=== PATIENT | male | born 1990 | race Caucasian/White ===

== ENCOUNTER → 2021-07-26 08:35 | Outpatient (CLI) | payer OTHER, SELFPAY ==
[2021-07-26 10:05] LABS: Absolute Lymphocyte Count 1.27 X10^3/uL (0.83-4.51); Absolute Neutrophil Count 2.8 X10^3/uL (2.0-7.7); Basophil# 0.04 X10^3/uL; Basophil% 0.8 % (0-1); Eosinophil# 0.42 X10^3/uL; Eosinophils% 8.4 % (0-5); Hematocrit 50.2 % (40-54); Hemoglobin 17.2 g/dL (13.0-16.5); Lymphocyte # 1.27 X10^3/ul (0.83-4.51); Lymphocyte % 25.4 % (19-41); Mean Corp Hgb Conc 34.3 g/dL (32-36); Mean Corpuscular Hgb 32.4 pg (27.0-32.0); Mean Corpuscular Volume 94.5 fL (80-94); Mean Platelet Vol. 11.6 fl (6.2-12.0); Monocyte# 0.51 X10^3/uL; Monocyte% 10.2 % (0-10); NRBC Flagged by Analyzer 0 % (0-5); Neutrophil # 2.75 X10^3/uL (2.7-7.7); Platelet Count 198 K/mm3 (150-450); RBC Distribution Width CV 11.9 % (11.6-14.6); Red Blood Count 5.31 M/mm3 (4.6-6.2)
[2021-07-26 10:16] LABS: Erythrocyte Sedimentation Rate 2 mm/hr (0-20)
[2021-07-26 10:39] LABS: Anion Gap 6 (5-15); BUN 19 mg/dL (7-18); BUN/Creat Ratio 17.3 RATIO (10-20); Calcium,Total 9.1 mg/dL (8.5-10.1); Chloride 105 mmol/L (98-107); Cholesterol 192 mg/dL (200); EST Glomerular Filtration Rate 82 mL/min (>60); Est Glom Filt Rate - Afr Amer 99 mL/min (>60); Glucose 97 mg/dL (74-106); High Density Lipoprotein 56 mg/dL; Magnesium 2.7 mg/dL (1.6-2.6); Potassium 4.7 mmol/L (3.5-5.1); Sodium Level 139 mmol/L (136-145); Thyroid Stim Hormone (TSH) 2.08 uIU/mL (0.358-3.74); Triglycerides 91 mg/dL; Very Low Density Lipoprotein 18 mg/dL (5-40)
[2021-07-29 13:31] LABS: ANTINUCLEAR ANTIBODIES DIRECT Negative (Negative)
== END ==
PROVIDERS: PCP Family Medicine; Referring Provider Family Medicine; Visit Provider Family Medicine
DX: Z13.220 Encounter for screening for lipoid disorders (principal); Z13.1 Encounter for screening for diabetes mellitus; I73.00 Raynaud's syndrome without gangrene; R00.2 Palpitations
CPT/HCPCS: 36415; 80048; 80061; 83735; 84443; 85025; 85652; 86038

== ENCOUNTER 2021-09-16 12:00 | Outpatient (RCR) | payer OTHER, SELFPAY ==
--- NOTE | 2021-06-16 15:53 | HP.PTEVAL_ITS ---
Patient's Visit Information MARY SANCHEZ is a 31 year old M referred to Physical Therapy by LUCAS STROUD with a diagnosis of L KNEE ARTHROSCOPIC GENERAL KNEE DEBRIDEMENT 06/03/[address] COTY HOWE. Date of Evaluation: 06/10/21 Physical Therapist: Gaby Ward, PT, Cert MDT - Visit Plan Frequency: 2x /Week Duration: 2 Months Plan: PER PHYSICIAN ORDER: WBAT L WITH BRACE LOCKED IN EXTENSION X 2 WEEKS (PATIENT NON-COMPLIANT). REHAB PER [facility] KNEE ARTHROSCOPY PROTOCOL (IN WORK ROOM). NMES PER PROTOCOL. 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 Present symptoms: PATIENT REPORTS HIS KNEE FEELS REALLY TIGHT. MILD PAIN. NO NUMBNESS OR TINGLING. Present since: 3 WKS AGO. Pain Scale: WORST 6/10, LEAST 1/10. Currently: 09/16. Commenced as a result of: SITTING ON EDGE OF CHAIR WITH FOOT BEHIND HIM AND WHEN HE TRIED TO STRAIGHTENED OUT HIS LEG HE COULDN'T AND HEARD SAND PAPER TYPE TEARING SOUNDS. Symptoms at onset: A LOT OF PAIN, IMMEDIATE SWELLING AND INABILITY TO STRAIGHTEN KNEE. Worse: ABRUPT AGGRESSIVE CONTACT (NEPHEW RAN WAGON INTO LEG), TWISTING. Better: SITTING DOWN, LYING DOWN, ICE. Disturbed sleep: NO. Previous history/Previous treatment: 20 YEARS AGO TORE L MENISCUS PLAYING FOOTBALL AND HAD REPAIR THEN PLAYED SPORTS IN [employer] AND [employer] WITHOUT ISSUES UNTIL 3 WEEKS AGO. Treatment this episode: ARTHROSCOPIC SURGERY 06/03/21. Gait: STATES HE HAS BEEN WALKING ON CRUTCHES WITH EDDA WRAP SINCE THURSDAY OF LAST WEEK TOLERATED. ICING ABOUT 4 TIMES A DAY. NWB WITH BRACE UNTIL THURSDAY. STARTED WBAT WITH CRUTCHES TOLERATED THURSDAY WITHOUT BRACE. Accidents: NO. Unexplained weight loss: NO. Imaging: NONE SINCE SURGERY. PHYSICAL EXAM ONLY - NO IMAGING BEFORE SURGERY EITHER. PMH: UNREMARKABLE OTHER THAN RIGHT SHLD LABRUM REPAIR AND L KNEE MENISCUS REPAIR TEENAGER. PLOF: UNLIMITED. - Objective THIS PATIENT AMBULATES INDEP'LY INTO PT ON ENRRIQUE AXILLARY CRUTCHES VERY LIGHTLY BEARING WEIGHT ON THE LLE, EDDA WRAP ON KNEE AND CARRYING KNEE BRACE. PATIENT IS INDEP WITH TRANSFERS AND ABLE TO GET LLE ON AND OFF TREATMENT TABLW WITHOUT UE ASSIST. RIGHT LE ROM AND STRENGTH ARE WFL. LLE STRENGTH: HIP 4-/5, KNEE EXT 2+/5, KNEE FLEX 2+/5, ANKLE 5/5. LLE AROM IN SUPINE WITH A HEEL SLIDE = -5 DEG EXT TO 75 DEG FLEXION. PORT HOLES LOOK GOOD WITHOUT ANY SIGNS OF INFECTION. CIRCUMFERENCE MEASUREMENTS L KNEE: AT PATELLA - 44 CM. 6 PROX TO PATELLA - 51.5 CM. - Balance/Special Test Scores Lower Extremity Functional Score: 18 WOMAC Total Score: 50 WOMAC Percentatge: 47.9200 - Goals Goal 1:: INDEP AND SAFE GAIT WITH LEAST ASSISTIVE DEVICE AND DEVIATIONS WITHIN GUIDELINES OF PROTOCOL Goal Time Frame: 6-8 Weeks Goal 2:: INCREASE FUNCTIONAL ROM OF LLE TO EASE ADL'S WITHIN GUIDELINES OF PROTOCOL Goal Time Frame: 6-8 Weeks Goal 3:: INCREASE FUNCTIONAL STRENGTH OF LLE TO EASE ADL'S WITHIN GUIDELINES OF PROTOCOL Goal Time Frame: 6-8 Weeks Goal 4:: PATIENT WILL BE INDEP WITH A HEP FOR CONTINUED IMPROVEMENT ONCE FORMAL PHYSICAL THERAPY CONCLUDES. Goal Time Frame: 6-8 Weeks - Anticipated Interventions Patient/Client Instruction: Educate patient on: Condition, Plan of Care, Risk Factors For the Purpose of:: To improve self management Therapeutic Exercise to Include: Strength training, Flexibilty training, Gait and locomotor training, Neuromotor development, Active ROM For the Purpose of:: To decrease pain, To decrease swelling/inflammation, To increase ROM, To improve muscle performance and motor function, To increase tolerance to activity/condition/position, To improve ability of physical actions for home/community/work/leisure, To improve gait and locomotor functions Other electric stimulation: Yes - NMES PER PROTOCOL Cryotherapy (ice pack, ice massage): Yes For the Purpose of:: To decrease pain, To decrease swelling/inflammation Thank you for the opportunity to evaluate your patient. For Medicare and Medicare HMO plans, please review the plan of care and approve it. It will need to be FAXED BACK to us at [phone] for Medicare purposes. For Medicare only, by signing this I certify the plan of care. Please let me know if there are questions or concerns regarding this plan of care. Physician Signature: D ate:
--- NOTE | 2021-09-02 13:00 | HP.PTREVAL ---
LUCAS STROUD, It has been my pleasure to treat MARY SANCHEZ over the last 19 visits for L KNEE ARTHROSCOPIC GENERAL KNEE DEBRIDEMENT 06/03/[address] COTY HOWE. Please see the progress note below for an update on the physical therapy plan of care! Subjective: PATIENT REPORTS HE STILL HAS SOME GHOST ACHES AND PAINS. STATES THE DOCTOR THINKS HIS STRENGHT IS COMING ALONG GOOD BUT THE PAIN ISN'T GOOD. PATIENT REPORTS HE HAS BEEN ON HIS KNEE A LOT THE PAST 5 DAYS AND IT IS REALLY SWOLLEN TODAY. PATIENT REPORTS THE DOCTOR SAID NOT TO RUN ON IT YET. OK TO DO FLUTTER KICKS IN THE WATER BUT NOT BREAST STROKE KICK. PATIENT REPORTS THAT DR. PATEL SAID THAT ONE OF THE STITCHES OR ANCHORS MIGHT HAVE POSSIBLY COME LOOSE AND IS FLOATING AROUND OR SCAR TISSUE - RARE. HARD TO DX THE LADDER SO RECOMMENDED TRYING ANOTHER 3 MONTHS OF PT BEFORE CONSIDERING GOING BACK IN AGAIN. PLANNING TO GO TO THE [facility]. PATIENT REPORTS HE HAS A LOT OF DISCOMFORT IN HIS KNEE RIGHT NOW AND HAS LOST A LOT OF MOBILITY SINCE LAST PT VISIT BECAUSE HE STATES HE HAS BEEN ON IT WAY TOO MUCH. 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 Objective/Function: PATIENT WAS SEEN TODAY FOR RE-ASSESSMENT OF PROGRESS TOWARD THE SET PT GOALS AND THE NEED FOR FURTHER PHYSICAL THERAPY VS READINESS FOR DISCHARGE. PATIENT IS A GOOD CANDIDATE TO CONTINUE PT DUE TO RECENT SET BACK WITH INCREASED SWELLING AND DECREASED ROM IN RESPONSE TO TRYING TO RETURN TO PRIOR LEVEL OF FUNCTION. HIS SWELLIING TODAY IS ALMOST BACK TO WHAT IT WAS AT HIS INITAL PT EVAL AFTER SURGERY AND HIS KNEE FLEXION ROM HAS DECREASED BACK TO 120 DEG FLEXION TODAY. UPON EXAM TODAY: L KNEE AROM IN SUPINE WITH A HEEL SLIDE = FULL EXTENSION TO 120 DEG FLEXION WITH [id number]. CIRCUMFERENCE MEASUREMENTS L KNEE: AT PATELLA - 43.5 CM. 6 PROX TO PATELLA - 51.5 CM. GOOD SCAR MOBILITY AND GOOD PATELLAR MOBILITY. ISOMETRIC QUAD AND HS STRENGTH IS GOOD. PATIENT REPORTS THAT HE KNOWS HIS INCRASED KNEE PAIN, SWELLING AND STIFFNESS IS DUE TO HIS ACTIVITIES OUTSIDE OF PT. THIS PT RECOMMENDS AQUATIC THERAPY AT THIS TIME DUE TO THESE INCREASED SX'S. PATIENT IS AGREEABLE. ENCOURAGED PATIENT TO DECREASE ACTIVITIES OUTSIDE OF PT THAT PROVOKE PAIN AND/OR SWELLING AND PATIENT RESPONDS THAT THIS IS VERY DIFFICULT FOR HIM. Plan Plan: CHANGE FROM LAND TO AQUATIC THERAPY FOR LEFT KNEE PAIN REDUCTION, ROM, STRETCHING AND STRENGTHENING TOLERATED TO HELP MEET SET GOALS. Balance/Gait/Functional tests - Balance/Special Test Scores Lower Extremity Functional Score: 60 WOMAC Total Score: 6 WOMAC Percentage: 93.7500 Goals Goal 1:: INDEP AND SAFE GAIT WITH LEAST ASSISTIVE DEVICE AND DEVIATIONS WITHIN GUIDELINES OF PROTOCOL Goal Time Frame: 6-8 Weeks Goal Progress: Goal Met Goal 2:: INCREASE FUNCTIONAL ROM OF LLE TO EASE ADL'S WITHIN GUIDELINES OF PROTOCOL Goal Time Frame: 6-8 Weeks Goal Progress: Not Progressing Goal 3:: INCREASE FUNCTIONAL STRENGTH OF LLE TO EASE ADL'S WITHIN GUIDELINES OF PROTOCOL Goal Time Frame: 6-8 Weeks Goal Progress: Not Progressing Goal 4:: PATIENT WILL BE INDEP WITH A HEP FOR CONTINUED IMPROVEMENT ONCE FORMAL PHYSICAL THERAPY CONCLUDES. Goal Time Frame: 6-8 Weeks Goal Progress: Progressing Anticipated Interventions Patient/Client Instruction: Educate patient on: Condition, Plan of Care, Risk Factors For the Purpose of:: To improve self management Therapeutic Exercise to Include: Strength training, Flexibilty training, Gait and locomotor training, Neuromotor development, Active ROM For the Purpose of:: To decrease pain, To decrease swelling/inflammation, To increase ROM, To improve muscle performance and motor function, To increase tolerance to activity/condition/position, To improve ability of physical actions for home/community/work/leisure, To improve gait and locomotor functions Other electric stimulation: Yes - NMES PER PROTOCOL Cryotherapy (ice pack, ice massage): Yes For the Purpose of:: To decrease pain, To decrease swelling/inflammation Please do not hesitate to contact me at [phone] by phone or if you have questions or concerns regarding this new plan of care! Sincerely, Gaby Ward, PT, Cert MDT
== END 2021-09-16 19:00 | disposition home or self-care (01) ==
LOC: PT 12:00
DX: Z98.890 Other specified postprocedural states (principal)
CPT/HCPCS: 97014; 97110; 97113; 97161; 97164; 97530; G0283

== ENCOUNTER 2022-11-15 21:59 | Emergency (ER) | payer OTHER, SELFPAY ==
[2022-11-15 22:00] VITALS: BP 119/82; PULSE 81; RESP 16; TEMP 35.9; O2SAT 98; BMI 27.7
--- NOTE | 2022-11-15 22:40 | EX.ED.DYSGE1 ---
HPI History of Present Illness Chief Complaint: Chest Pain Narrative Narrative: Patient is a 32-year-old male with no significant past medical history. He states he was on a cruise for the past 5 days and flew home from [facility] today. He states that he was sitting on the plane and once they closed the cabin door and began to due to pressurized the plane he developed a midsternal chest discomfort with numbness and tingling in his arms and legs. He states that the initial sensation lasted for a few minutes and since that time he will have repeat chest discomfort that last for 5 to 10 seconds every few minutes. He states there is no nausea vomiting diaphoresis or shortness of breath associated with this. He denies any family history of cardiac disease at a young age. He denies any illicit drug use. He denies any recent surgery travel greater than 4 hours or history of DVT/PE. He states that he is concerned that this could be cardiac in nature and secondary to this comes in for evaluation. [facility] Medical History Heart murmur of Allergy/AdvReac Type Severity Reaction Status Date / Time No Known Allergies Allergy Verified 11/15/22 22:04 Social History Smoking Status: Former smoker [facility] ED Constitutional Constitutional ED: Denies chills or fever(s) ENT ENT ED: Denies sore throat Cardiovascular Cardiovascular: Reports chest pain; Denies palpitations or racing heartbeat Respiratory/Chest Respiratory/Chest: Denies cough or dyspnea Gastrointestinal Gastrointestinal: Denies abdominal pain, diarrhea, nausea or vomiting Genitourinary Genitourinary ED: Denies dysuria Musculoskeletal Musculoskeletal: Denies myalgias Integumentary Denies rash Neurologic Neurologic: Reports paresthesias; Denies headache(s) or weakness Psychiatric Psychiatric: Denies anxiety Hematologic/Lymphatic Hematologic/Lymphatic: Denies easy bleeding or easy bruising EXAM Physical Exam Const Vital Signs: 11/15/22 22:00 11/15/22 22:00 11/15/22 22:33 Temperature 96.6 F L 96.6 F L Temperature Source Temporal Temporal Pulse Rate 81 81 Respiratory Rate 16 16 Respiratory Effort Normal Blood Pressure 119/82 H 119/82 H Blood Pressure Mean 94 94 Pulse Ox 98 98 Oxygen Delivery Method Room Air Room Air 11/15/22 23:13 Temperature Temperature Source Pulse Rate 73 Respiratory Rate 16 Respiratory Effort Blood Pressure 99/66 Blood Pressure Mean 77 Pulse Ox 100 Oxygen Delivery Method Room Air Positive well nourished and well developed General Appearance ED: well developed HEENT Reports moist mucous membranes Eyes PERRL and EOMs intact bilaterally General Eye ED: Negative for scleral icterus Neck supple Neck Narrative: Carotid pulses are plus 2 out of 4 bilaterally Chest Wall palpation of chest normal Chest Narrative: No bony deformity or crepitus noted Resp normal respiratory effort and clear to auscultation bilaterally Cardio regular rate and regular rhythm Rate: other Other Details: Radial pulses are plus 2 out of 4 bilaterally are equal and symmetric GI normal to inspection, nondistended, normoactive bowel sounds, non-tender, non-distended and no masses GI Narrative: No voluntary guarding or rigidity no pulsatile mass Auscultation: normoactive bowel sounds Palpation: soft Extremity normal to inspection Extremity Narrative: No asymmetric edema no pitting edema negative Homans' sign bilaterally Neuro oriented x3 and CN's II-XII intact bilaterally Sensorium / Orientation: alert Psych mental status grossly normal Skin no rashes or lesions noted General Skin Exam: Negative for jaundice MDM MDM MDM Narrative Medical decision making narrative: Patient presented to the ER with stable vitals and low risk factors for cardiovascular disease. Also his report of symptoms are not classic cardiac in nature. As his travel today was only 2 hours I did not feel need for a D-dimer. As he reports symptoms have been persistent for multiple hours as well I do not feel the need for repeat troponin as his initial is 3. On reevaluation the patient is resting comfortably and states that symptoms have improved and therefore as he is low risk for acute ACS and work-up reveals no clinically significant findings he is otherwise safe for discharge. Differential did include pneumothorax pneumonia acute ACS anxiety or electrolyte disturbance. As work-up is negative and symptoms improved there was no need for consultation. The plan of care was discussed with the patient and he is agreeable to it and therefore will be discharged. Please note aspirin was not given in the ER as patient states he took a full-strength aspirin prior to arrival. History & Record Review Discussion w/independent historian: Patient Lab Data Attestation: I reviewed the patient's lab results. Labs: Laboratory Results - last 24 hr 11/15/22 11/15/22 22:40 22:40 WBC 6.8 RBC 4.70 Hgb 15.4 Hct 44.1 MCV 93.8 MCH 32.8 H MCHC 34.9 RDW Std Deviation 41.1 RDW Coeff of Erin 11.9 Plt Count 197 MPV 10.6 Immature Gran % (Auto) 0.300 Neut % (Auto) 72.7 H Lymph % (Auto) 18.2 L [place] % (Auto) 7.2 Eos % (Auto) 1.2 Baso % (Auto) 0.4 Absolute Neuts (auto) 5.0 Absolute Lymphs (auto) 1.24 Nucleated RBC % 0 Sodium 141 Potassium 3.7 Chloride 103 Carbon Dioxide 30.0 Anion Gap 8 BUN 16 Creatinine 1.16 Estim Creat Clear Calc 98.49 Est GFR (MDRD) Af Amer 92 Est GFR (MDRD) Non-Af 76 BUN/Creatinine Ratio 13.8 Glucose 113 H Calcium 9.1 Magnesium 2.1 Troponin I High Sens 3 Radiography Diagnostic Testing: Clinical Impression(s) from Imaging Studies Chest X-Ray 11/15/22 22:53 IMPRESSION: No acute disease Electronically Signed: Keith Blanca MD at 23:05 EST Reading Location ID and State: [address] [place] [address] , Service support , 2 view chest x-ray as interpreted by the emergency medicine physician reveals no acute infiltrate pneumothorax or pleural effusion Discharge Plan Triage Chief Complaint: Chest Pain ED Provider: Quinn Urban Dx/Rx/DC Orders Clinical Impression: Acute nonspecific chest pain with low risk of coronary artery disease Instructions: ED Chest Pain, Uncertain Cause Primary Care Provider: Karan Villarreal Referrals: Karan Villarreal MD [Primary Care Provider] - Activity Restrictions/Additional Instructions: Your work-up today did not show any of heart damage or heart attack. Please follow-up with your family doctor for repeat evaluation and return to the ER should you have any further concerns Disposition Disposition: Home, Self Care
[2022-11-15] MEDS: 0.9% Normal Saline 1,000 ML 999 ML IV (22:43)
--- NOTE | 2022-11-15 22:53 | RAD_ITS ---
STUDY: X-RAY CHEST REASON FOR EXAM: Male, 32 years old. chest pain TECHNIQUE: Frontal and lateral views of the chest. COMPARISON: None. FINDINGS: The lungs are clear and expanded. There is no demonstrated pleural abnormality. Normal size heart. Normal mediastinum and floyd. Normal visualized pulmonary arteries. Normal visualized aortic arch and descending thoracic aorta. Mild scoliosis. Normal visualized ribs, clavicles, and shoulders. There is no demonstrated abnormality of the visualized soft tissue structures of the upper abdomen. RAD/Chest PA and Lateral IMPRESSION: No acute disease Electronically Signed: Keith Blanca MD at 23:05 EST ,
[2022-11-15 23:01] LABS: Absolute Lymphocyte Count 1.24 X10^3/uL (0.83-4.51); Basophil# 0.03 X10^3/uL; Basophil% 0.4 % (0-1); Eosinophil# 0.08 X10^3/uL; Eosinophils% 1.2 % (0-5); Hematocrit 44.1 % (40-54); Hemoglobin 15.4 g/dL (13.0-16.5); Lymphocyte # 1.24 X10^3/ul (0.83-4.51); Lymphocyte % 18.2 % (19-41); Mean Corp Hgb Conc 34.9 g/dL (32-36); Mean Corpuscular Hgb 32.8 pg (27.0-32.0); Mean Corpuscular Volume 93.8 fL (80-94); Mean Platelet Vol. 10.6 fl (6.2-12.0); Monocyte# 0.49 X10^3/uL; Monocyte% 7.2 % (0-10); NRBC Flagged by Analyzer 0 % (0-5); Neutrophil # 4.96 X10^3/uL (2.7-7.7); Neutrophil % 72.7 % (47-70); Platelet Count 197 K/mm3 (150-450); RBC Distribution Width CV 11.9 % (11.6-14.6); RBC Distribution Width SD 41.1 fl (35.1-43.9); White Blood Count 6.8 K/mm3 (4.4-11.0)
[2022-11-15 23:13] VITALS: BP 99/66; PULSE 73; RESP 16; O2SAT 100
[2022-11-15 23:26] LABS: Anion Gap 8 (5-15); BUN 16 mg/dL (7-18); BUN/Creat Ratio 13.8 RATIO (10-20); Calcium,Total 9.1 mg/dL (8.5-10.1); Chloride 103 mmol/L (98-107); Creatinine, Serum 1.16 mg/dL (0.70-1.30); EST Glomerular Filtration Rate 76 mL/min (>60); Est Glom Filt Rate - Afr Amer 92 mL/min (>60); Estimated Creatinine Clearance 98.49 ml/min; Glucose 113 mg/dL (74-106); Magnesium 2.1 mg/dL (1.6-2.6); Potassium 3.7 mmol/L (3.5-5.1); Sodium Level 141 mmol/L (136-145); Troponin-I HS 3 pg/mL (3.0-78.0)
== END 2022-11-15 23:42 | disposition home or self-care (01) ==
PROVIDERS: Emergency Provider Emergency Medicine; PCP Family Medicine; Visit Provider Emergency Medicine
DX: R07.9 Chest pain, unspecified (principal); Z87.891 Personal history of nicotine dependence
CPT/HCPCS: 71046; 80048; 83735; 84484; 85025; 93005; 96360; 99282; J7030; A4216

== ENCOUNTER 2022-12-02 09:14 | Inpatient (IN) | payer OTHER, SELFPAY ==
[2022-12-02] VITALS (7 sets, daily range): BP systolic 91–109; BP diastolic 45–68; PULSE 57–75; RESP 14–18; TEMP 36.4–36.9; O2SAT 97–100; BMI 27.1
--- NOTE | 2022-12-02 09:40 | CT_ITS ---
STUDY: CT ABDOMEN AND PELVIS WITH CONTRAST REASON FOR EXAM: Male, 32 years old. RLQ pain RADIATION DOSAGE (If Supplied By Facility): CTDIvol = ( 16.14 ) mGy, DLP = ( 970.41 ) mGycm TECHNIQUE: Transaxial images were obtained from the dome of the diaphragm to the symphysis pubis without oral contrast. IV 100mL Isovue-370 was administered. Sagittal and coronal images were reconstructed. Individualized dose optimization techniques were used for this CT. COMPARISON: None. FINDINGS: Minimal basilar atelectasis at the left lung base. Mild pericardial thickening along the anterior right side of the inferior aspect of the cardiac border. Normal liver. Normal gallbladder and extrahepatic biliary system. Normal spleen. Normal pancreas. Normal bilateral adrenal glands. Normal right kidney. Normal left kidney. There is a small hiatal hernia. There is mucosal thickening of the terminal ileum. Normal colon. There is a tubular, thick-walled appendix (>7mm), consistent with acute appendicitis. Normal abdominal aorta. Normal inferior vena cava. Normal retroperitoneum. Normal urinary bladder. There are prostatic calcifications. There is a small umbilical hernia containing fat. Normal osseous structures. CT/Abdomen/Pelvis W IV Cont ONLY IMPRESSION: Findings in keeping with a noncomplicated appendicitis. Circumferential thickening of the terminal ileum. Crohn''s disease should be ruled out. Electronically Signed: Gui Capellan MD at 11:04 EDT ,
--- NOTE | 2022-12-02 09:40 | EDS_ITS ---
HPI HPI - GI History of Present Illness Chief Complaint: Abd Pain Narrative Narrative: 32-year-old male who denies significant past medical history presents with right lower quadrant abdominal pain that began at around 430 this morning, approximately 5 hours ago. He states it woke him from sleep. It started out as periumbilical pain, but has since moved to the right lower quadrant. He denies any fevers or chills. He was going to go see his primary care provider but he became nauseated and vomited without any blood in his emesis. He denies any dysuria or hematuria. No problems with bowel movements. Earlier today, he thought that lying flat perhaps made it better. He states that whenever he tenses his abdomen or moves that he has pain mainly in the right lower quadrant. No previous past surgical history to the abdomen. [facility] Medical History (Updated 12/02/22 @ 12:03 by Bassem Richardson MD) Anxiety Heart murmur of Home Medications desvenlafaxine succinate 50 mg tablet,extended release 24 hr 50 mg PO DAILY 12/02/22 [History Last Taken Unknown] Allergy/AdvReac Type Severity Reaction Status Date / Time No Known Allergies Allergy Verified 12/02/22 09:17 Social History Smoking Status: Former smoker ROS ROS ED ROS Narrative Constitutional: No fever, no chills. HEENT: No sore throat. No neck pain. No loss of vision. No rhinorrhea. Cardiovascular: No chest pain. No palpitations. No pedal edema. Respiratory: No cough, no shortness of breath. Abdominal: Periumbilical to right lower quadrant abdominal pain. Positive nausea and vomiting. Genitourinary: No dysuria. No hematuria. Musculoskeletal: No myalgias. No arthralgias. Neurologic: No headaches. No dizziness. No lightheadedness. Skin: No rash. No change in color. Psychiatric: No depression. No anxiety. EXAM Physical Exam Narrative Exam Narrative: Afebrile. Vital signs noted. HEENT: Normocephalic. Atraumatic. PERRL, EOMI. Neck soft and supple. No point tenderness or step off. Cardiovascular: Regular rate and rhythm. No murmurs, rubs, or gallops appreciated. Respiratory: No tachypnea. Lungs clear to auscultation bilaterally. Gastrointestinal: Abdomen soft, negative Maradiaga sign. Positive tenderness over McBurney's point. With normoactive bowel sounds. No rebound or guarding. Negative heel strike. Neurological: Awake. Alert. Nonfocal, nonlateralizing. Skin: No rash. Normal color. No pallor. Musculoskeletal: No pedal edema. Full range of motion extremities. Const Vital Signs: 12/02/22 09:15 12/02/22 11:04 12/02/22 11:11 Temperature 97.9 F 98 F Temperature Source Temporal Temporal Pulse Rate 66 59 L 75 Respiratory Rate 18 16 14 Blood Pressure 104/66 91/45 L 100/58 L Blood Pressure Mean 78 60 72 Blood Pressure Source Monitor Blood Pressure Position Supine Blood Pressure Location Right Arm Pulse Ox 100 100 99 Oxygen Delivery Method Room Air Room Air Room Air 12/02/22 11:59 Temperature Temperature Source Pulse Rate 74 Respiratory Rate 16 Blood Pressure 103/63 Blood Pressure Mean 76 Blood Pressure Source Blood Pressure Position Blood Pressure Location Pulse Ox 99 Oxygen Delivery Method Room Air MDM MDM MDM Narrative Medical decision making narrative: High on the differential diagnosis is appendicitis. Given his history of periumbilical pain migrating to the right lower quadrant, along with nausea and vomiting. I will obtain CBC, CMP, and lipase in the event that this would be more gallbladder pathology or cholecystitis, but this is less likely given his physical examination and no pain over the right upper quadrant/Maradiaga sign. He was administered morphine for analgesia and ondansetron along with a normal saline bolus of [address] I do feel [address] imaging with IV contrast is indicated to help rule in or rule out appendicitis. I reviewed the patient's laboratory work. He has a normal white count of 8.4, hemoglobin slightly hemoconcentrated at 16.7, hematocrit 48.7. Normal platelet count of 178. Review of his CMP shows glucose appropriately elevated at 122 with a normal anion gap/low at 2. Sodium normal at 139 with potassium normal at 4.5. LFTs are unremarkable with an AST of 19 and an ALT of 31, alk phos normal at 67. In review of his urinalysis, it is negative for infection. Upon repeat examination, after morphine, he is resting comfortably but he had a transient bout of hypotension. He will be bolused normal saline 1 L intravenously. I reviewed his CT imaging, then the radiology report of the CT which demonstrates uncomplicated appendicitis without perforation or abscess development. Patient will be discussed with Dr. Mcguire with General Surgery for admission/taken to the OR. In discussion with general surgery, and with further review of the CT report, there is thickening of the terminal ileum. There is concern that appendectomy cannot be performed given the friable tissue and thickening if the patient does have Crohn disease. Antibiotics will be started. I further discussed the patient with Dr. Mcguire. She has spoken extensively with the patient and his family, and additionally, she was able to contact gastroenterology although no one is on-call here today. It was felt that they will follow as an inpatient but the patient should be admitted to the hospitalist at this time. I will discuss the patient with Dr. Black for admission. Patient is in stable condition. History & Record Review Discussion w/independent historian: Patient Additional record(s) reviewed:: Prior ED visit Lab Data Attestation: I reviewed the patient's lab results. Labs: Laboratory Results - last 24 hr 12/02/22 12/02/22 12/02/22 09:46 09:46 10:25 WBC 8.4 RBC 5.01 Hgb 16.7 H Hct 48.7 MCV 97.2 H MCH 33.3 H MCHC 34.3 RDW Std Deviation 43.8 RDW Coeff of Erin 12.3 Plt Count 178 MPV 10.9 Immature Gran % (Auto) 0.200 Neut % (Auto) 89.5 H Lymph % (Auto) 6.0 L [place] % (Auto) 3.9 Eos % (Auto) 0.2 Baso % (Auto) 0.2 Absolute Neuts (auto) 7.5 Absolute Lymphs (auto) 0.50 L Nucleated RBC % 0 Differential Comment SCANNED Sodium 139 Potassium 4.5 Chloride 107 Carbon Dioxide 30.0 Anion Gap 2 L BUN 15 Creatinine 1.15 Estim Creat Clear Calc 99.34 Est GFR (MDRD) Af Amer 93 Est GFR (MDRD) Non-Af 77 BUN/Creatinine Ratio 13.0 Glucose 122 H Calcium 9.0 Total Bilirubin 0.60 AST 19 ALT 31 Alkaline Phosphatase 67 Total Protein 7.3 Albumin 4.0 Globulin 3.3 Albumin/Globulin Ratio 1.2 Lipase 93 Urine Color Yellow Urine Clarity Clear Urine pH 8.0 Ur Specific [place] 1.010 Urine Protein 30 H Urine Glucose (UA) Normal Urine Ketones 5 H Urine Occult Blood Negative Urine Nitrite Negative Urine Bilirubin Negative Urine Urobilinogen Normal Ur Leukocyte Esterase 25 H Urine RBC 0 SEEN Urine WBC 0 SEEN Ur Squamous Epith Cells 0 SEEN Urine Bacteria 0 SEEN Urine Mucus 1+ Radiography Diagnostic Testing: Clinical Impression(s) from Imaging Studies Abdomen/Pelvis CT 12/02/22 09:40 IMPRESSION: Findings in keeping with a noncomplicated appendicitis. Circumferential thickening of the terminal ileum. Crohn''s disease should be ruled out. Electronically Signed: Gui Capellan MD at 11:04 EDT , Discharge Plan Dx/Rx/DC Orders Clinical Impression: Acute appendicitis, Anxiety, Abdominal pain, Abnormal computed tomography of cecum and terminal ileum Disposition Disposition: Acute Care Hospital [facility]
[2022-12-02 09:58] LABS: Absolute Neutrophil Count 7.5 X10^3/uL (2.0-7.7); Basophil# 0.02 X10^3/uL; Basophil% 0.2 % (0-1); Eosinophil# 0.02 X10^3/uL; Eosinophils% 0.2 % (0-5); Hematocrit 48.7 % (40-54); Hemoglobin 16.7 g/dL (13.0-16.5); Mean Corp Hgb Conc 34.3 g/dL (32-36); Mean Corpuscular Hgb 33.3 pg (27.0-32.0); Mean Corpuscular Volume 97.2 fL (80-94); Mean Platelet Vol. 10.9 fl (6.2-12.0); Monocyte# 0.33 X10^3/uL; Monocyte% 3.9 % (0-10); NRBC Flagged by Analyzer 0 % (0-5); Neutrophil # 7.49 X10^3/uL (2.7-7.7); Neutrophil % 89.5 % (47-70); POSITIVE DIFFERENTIAL YES; Platelet Count 178 K/mm3 (150-450); RBC Distribution Width CV 12.3 % (11.6-14.6); RBC Distribution Width SD 43.8 fl (35.1-43.9); Red Blood Count 5.01 M/mm3 (4.6-6.2); White Blood Count 8.4 K/mm3 (4.4-11.0)
[2022-12-02] MEDS: Ondansetron 4 MG/2 ML Vial IV (10:01)
[2022-12-02] MEDS: Morphine 4 MG/ML Syringe IV (10:01)
[2022-12-02] MEDS: 0.9% Normal Saline 1,000 ML 1000 ML IV (10:01)
[2022-12-02 10:03] LABS: Differential Indicated SCAN CRITERIA MET
[2022-12-02 10:17] LABS: ALB/GLOB Ratio 1.2 RATIO (0.9-2.4); AST(SGOT) 19 U/L (15-37); Alanine Aminotransfer ALT/SGPT 31 U/L (16-61); Alkaline Phosphatase 67 U/L (45-117); Anion Gap 2 (5-15); BUN 15 mg/dL (7-18); Chloride 107 mmol/L (98-107); Creatinine, Serum 1.15 mg/dL (0.70-1.30); EST Glomerular Filtration Rate 77 mL/min (>60); Est Glom Filt Rate - Afr Amer 93 mL/min (>60); Estimated Creatinine Clearance 99.34 ml/min; Globulin 3.3 g/dL (2.2-4.2); Glucose 122 mg/dL (74-106); Lipase 93 U/L (73-393); Potassium 4.5 mmol/L (3.5-5.1); Protein, Total 7.3 g/dL (6.4-8.2); Sodium Level 139 mmol/L (136-145)
[2022-12-02 10:31] LABS: Bacteria 0 SEEN /hpf (None Seen); Red Blood Cells-Urine 0 SEEN /hpf (0-5); Squamous Epithelial Cells - UA 0 SEEN /hpf (0-5); White Blood Cells 0 SEEN /hpf (0-5)
[2022-12-02 10:32] LABS: Differential Comment SCANNED
[2022-12-02 10:37] LABS: Color, Urine Yellow (Yellow); Glucose, Dipstick Normal (Normal); Ketone-Dipstick 5 mg/dl (Negative); Leukocyte Esterase-Dipstick 25 /ul (Negative); Nitrite-Dipstick Negative (Negative); Occult Blood-Urine Negative /ul (Negative); Protein-Dipstick 30 mg/dl (Negative); Urine Bilirubin Dipstick Negative (Negative); Urine Clarity Clear (Clear); Urine Urobilinogen Normal (Normal)
[2022-12-02 10:51] LABS: Mucous, Urine 1+ /hpf (<or=2+)
[2022-12-02] MEDS: 0.9% Normal Saline 1,000 ML 999 ML IV (11:25)
--- NOTE | 2022-12-02 12:25 | HP.PCM.HOS_ITS ---
HPI - General General Date of Admission: 12/02/22 Date of Service: 12/02/22 Chief Complaint: Abdominal pain HPI Narrative MARY SANCHEZ, is a 32 M with a history of anxiety who presented to [facility] 12/02/2022 with abdominal pain that woke him up at 4 AM. In the ED he had a CT of his abdomen and pelvis which showed noncomplicated appendicitis as well as circumferential thickening of terminal ileum concerning for Crohn's disease, surgery contacted and given the concern for possible Crohn's disease as well as him being stable acute surgical intervention not warranted and hospitalist admission requested. Patient endorses waking up at 4 AM and afterwards he was unable to get comfortable, had a small bowel movement but no relief. [place] the pain was periumbilical and sharp in nature. He has never had anything like this before. Reports some chronic intermittent diarrhea that has not necessarily changed, no blood in stool, has had nausea and emesis. Denied any other complaints at this time [facility] Medical History Anxiety Heart murmur of Home Medications GENIUS MUSHROOMS 1 tab PO/SL DAILY SUPPLEMENT 12/02/22 [History Last Taken 11/30/22] Thc Gummies 15 - 150 mg PO/SL DAILY PRN Anxiety 12/02/22 [History Last Taken 12/01/22] desvenlafaxine succinate 50 mg tablet,extended release 24 hr 50 mg PO DAILY FOCUS 12/02/22 [History Last Taken 11/30/22] jgxokkpb-fqwuhtls-dmkhc acid 400 mcg-vit K 20 mcg-lycop 300 mcg tablet 1 tab PO DAILY SUPPLEMENT 12/02/22 [History Last Taken 12/02/22] Allergy/AdvReac Type Severity Reaction Status Date / Time No Known Allergies Allergy Verified 12/02/22 09:17 Social History Smoking Status: Former smoker ROS ROS Narrative General: Denies fever/chills HENT: Denies headache, denies stuffy nose, denies sore throat EYES: Denies changes in vision Resp: Denies cough, denies shortness of breath Cardiac: Denies chest pain GI: periumbilical abd pain worse w/ movement : Denies changes in urination Extremity: Denies swelling MSK: Denies weakness Neuro: Denies any numbness/tingling Heme: Denies any bleeding or bruising Skin: Denies rashes Psychiatric: No complaints voiced Vital Signs Vital Signs Vital Signs: 12/02/22 09:15 12/02/22 11:04 12/02/22 11:11 Temperature 97.9 F 98 F Temperature Source Temporal Temporal Pulse Rate 66 59 L 75 Respiratory Rate 18 16 14 Blood Pressure 104/66 91/45 L 100/58 L Blood Pressure Mean 78 60 72 Blood Pressure Source Monitor Blood Pressure Position Supine Blood Pressure Location Right Arm Pulse Ox 100 100 99 Oxygen Delivery Method Room Air Room Air Room Air 12/02/22 11:59 Temperature Temperature Source Pulse Rate 74 Respiratory Rate 16 Blood Pressure 103/63 Blood Pressure Mean 76 Blood Pressure Source Blood Pressure Position Blood Pressure Location Pulse Ox 99 Oxygen Delivery Method Room Air Weight Weight: 90.718 kg Body Mass Index (BMI) 27.1 Physical Exam Narrative General: Alert, oriented, no apparent distress HEENT: Atraumatic, normocephalic Eyes: Anicteric, normal conjunctiva, extraocular movements grossly intact Neck: Supple Respiratory: Clear to auscultation bilaterally, normal respiratory effort Cardiovascular: Regular rate and rhythm GI: soft, non distended, tender to palpation primarily periumbilically, no r/g/r Extremities: No edema Musculoskeletal: Moving all extremities Neuro: No overt focal neurological deficits Skin: No rashes appreciated Psych: Cooperative Results Lab / Micro Data Result Diagrams: 12/02/22 09:46 12/02/22 09:46 Labs: Laboratory Results - last 24 hr 12/02/22 09:46: WBC 8.4, RBC 5.01, Hgb 16.7 H, Hct 48.7, MCV 97.2 H, MCH 33.3 H, MCHC 34.3, RDW Std Deviation 43.8, RDW Coeff of Erin 12.3, Plt Count 178, MPV 10.9, Immature Gran % (Auto) 0.200, Neut % (Auto) 89.5 H, Lymph % (Auto) 6.0 L, [place] % (Auto) 3.9, Eos % (Auto) 0.2, Baso % (Auto) 0.2, Absolute Neuts (auto) 7.5, Absolute Lymphs (auto) 0.50 L, Nucleated RBC % 0, Differential Comment SCANNED 12/02/22 09:46: Sodium 139, Potassium 4.5, Chloride 107, Carbon Dioxide 30.0, Anion Gap 2 L, BUN 15, Creatinine 1.15, Estim Creat Clear Calc 99.34, Est GFR (MDRD) Af Amer 93, Est GFR (MDRD) Non-Af 77, BUN/Creatinine Ratio 13.0, Glucose 122 H, Calcium 9.0, Total Bilirubin 0.60, AST 19, ALT 31, Alkaline Phosphatase 67, Total Protein 7.3, Albumin 4.0, Globulin 3.3, Albumin/Globulin Ratio 1.2, Lipase 93 12/02/22 10:25: Urine Color Yellow, Urine Clarity Clear, Urine pH 8.0, Ur Specific [place] 1.010, Urine Protein 30 H, Urine Glucose (UA) Normal, Urine Ketones 5 H, Urine Occult Blood Negative, Urine Nitrite Negative, Urine Bili bland Negative, Urine Urobilinogen Normal, Ur Leukocyte Esterase 25 H, Urine RBC 0 SEEN, Urine WBC 0 SEEN, Ur Squamous Epith Cells 0 SEEN, Urine Bacteria 0 SEEN, Urine Mucus 1+ Radiology Impression Abdomen/Pelvis CT 12/02/22 09:40 IMPRESSION: Findings in keeping with a noncomplicated appendicitis. Circumferential thickening of the terminal ileum. Crohn''s disease should be ruled out. Electronically Signed: Gui Capellan MD at 11:04 EDT , Assessment & Plan Assessment/Plan (1) Acute appendicitis: (2) Abnormal computed tomography of cecum and terminal ileum: PLAN: Plan #acute appendicits -seen on CT scan -d/w surgery, will keep on zosyn and CLD -terminal ileum inflammation seen w/ question for crohn's dz, GI consulted. -pain control, zofran prn #anxiety -cont effexor -supportive care DVT ppx: SCDs Charges/Coding Visit Charges Inpatient E&M: 19969 Init Hosp L2
--- NOTE | 2022-12-02 12:50 | EX.PCM.CON.S ---
Assessment & Plan Assessment/Plan (1) Abnormal computed tomography of cecum and terminal ileum: (2) Acute appendicitis: PLAN: Plan Reviewed to imaging personally and with patient and his dad. Patient's appendix is dilated likely secondary to the inflammation of the terminal ileum. Would not recommend surgery as discussed with patient and his dad it would require removal of much more terminal ileum and part of the cecum in order to heal if that would heal depending on inflammation present. We will plan to treat with antibiotics patient was started on IV Zosyn in the ER. No plans for surgical intervention. Patient will be admitted to hospitalist and have GI see patient for recommendations. Cayla Mcguire M.D. Pager: [phone] [facility] [address] [place] [address], [facility] [address] [place] [address] Office: [phone] HPI Consult Data Date of Consult: 12/02/22 HPI Narrative HPI Narrative: MARY SANCHEZ, is a 32 M who presents to ER for periumbilical pain starting at 4:30 am this AM. Pt denies previous abd pain hx or episodes. Pt does admit to diarrhea about every 3 days for years, pt denies inciting foods etc. CT a/p shows thickening of terminal ileum and appendicitis. Pt maternal uncle had crohns, dad has RA and his siblings have DM and sister with sjogrens. WBC wnl with left shift. Pt does drink 8-10 beers on thursday and thursday, previous was 20+ on those days. [facility] Medical History Anxiety Heart murmur of Home Medications GENIUS MUSHROOMS 1 tab PO/SL DAILY SUPPLEMENT 12/02/22 [History Last Taken 11/30/22] Thc Gummies 15 - 150 mg PO/SL DAILY PRN Anxiety 12/02/22 [History Last Taken 12/01/22] desvenlafaxine succinate 50 mg tablet,extended release 24 hr 50 mg PO DAILY FOCUS 12/02/22 [History Last Taken 11/30/22] yrudzdlw-atlhacmx-uqqli acid 400 mcg-vit K 20 mcg-lycop 300 mcg tablet 1 tab PO DAILY SUPPLEMENT 12/02/22 [History Last Taken 12/02/22] Allergy/AdvReac Type Severity Reaction Status Date / Time No Known Allergies Allergy Verified 12/02/22 09:17 Social History Smoking Status: Former smoker ROS Constitutional Constitutional: Reports anorexia; Denies chills ENT HEENT: Denies dizziness Cardiovascular Cardiovascular: Denies chest pain Respiratory/Chest Respiratory/Chest: Denies shortness of breath at rest Gastrointestinal Gastrointestinal: Reports abdominal pain, diarrhea and nausea; Denies constipation, heartburn, hematemesis or melena Genitourinary Genitourinary: Denies burning urination Musculoskeletal Musculoskeletal: Denies joint pain Integumentary Integumentary: Denies rash Neurologic Neurologic: Denies focal weakness Psychiatric Psychiatric: Denies depression Endocrine Endocrinology: Denies palpitations Hematologic/Lymphatic Hematologic/Lymphatic: Denies anemia or easy bleeding Physical Exam Const alert, oriented x3 and no apparent distress HEENT normocephalic and head/scalp atraumatic Resp normal respiratory effort Cardio regular rate GI soft to palpation; Negative for non-distended Palpation: tender periumbilical (slightly towards right); Negative for guarding Extremity no clubbing, cyanosis or edema Neuro CN's II-XII intact bilaterally Psych mental status grossly normal Lab / Micro Data Result Diagrams: 12/02/22 09:46 12/02/22 09:46 Labs: Laboratory Results - last 24 hr 12/02/22 09:46: WBC 8.4, RBC 5.01, Hgb 16.7 H, Hct 48.7, MCV 97.2 H, MCH 33.3 H, MCHC 34.3, RDW Std Deviation 43.8, RDW Coeff of Erin 12.3, Plt Count 178, MPV 10.9, Immature Gran % (Auto) 0.200, Neut % (Auto) 89.5 H, Lymph % (Auto) 6.0 L, [place] % (Auto) 3.9, Eos % (Auto) 0.2, Baso % (Auto) 0.2, Absolute Neuts (auto) 7.5, Absolute Lymphs (auto) 0.50 L, Nucleated RBC % 0, Differential Comment SCANNED 12/02/22 09:46: Sodium 139, Potassium 4.5, Chloride 107, Carbon Dioxide 30.0, Anion Gap 2 L, BUN 15, Creatinine 1.15, Estim Creat Clear Calc 99.34, Est GFR (MDRD) Af Amer 93, Est GFR (MDRD) Non-Af 77, BUN/Creatinine Ratio 13.0, Glucose 122 H, Calcium 9.0, Total Bilirubin 0.60, AST 19, ALT 31, Alkaline Phosphatase 67, Total Protein 7.3, Albumin 4.0, Globulin 3.3, Albumin/Globulin Ratio 1.2, Lipase 93 12/02/22 10:25: Urine Color Yellow, Urine Clarity Clear, Urine pH 8.0, Ur Specific [place] 1.010, Urine Protein 30 H, Urine Glucose (UA) Normal, Urine Ketones 5 H, Urine Occult Blood Negative, Urine Nitrite Negative, Urine Bilirubin Negative, Urine Urobilinogen Normal, Ur Leukocyte Esterase 25 H, Urine RBC 0 SEEN, Urine WBC 0 SEEN, Ur Squamous Epith Cells 0 SEEN, Urine Bacteria 0 SEEN, Urine Mucus 1+ Radiology Impression Abdomen/Pelvis CT 12/02/22 09:40 IMPRESSION: Findings in keeping with a noncomplicated appendicitis. Circumferential thickening of the terminal ileum. Crohn''s disease should be ruled out. Electronically Signed: Gui Capellan MD at 11:04 EDT , Charges/Coding Visit Charges Inpatient E&M: 74569 Init Hosp L3
[2022-12-02 13:16] LABS: Magnesium 2.3 mg/dL (1.6-2.6)
[2022-12-02] MEDS: 0.9% Normal Saline 1,000 ML 100 ML IV (15:11)
[2022-12-02] MEDS: Morphine 2 MG/ML Syringe IV ×2 (15:17→21:09)
[2022-12-02] MEDS: 0.9% Saline Lock 10 ML Syringe IV (21:09)
[2022-12-03] MEDS: 0.9% Normal Saline 1,000 ML 100 ML IV ×3 (00:27→20:18)
[2022-12-03 02:14] VITALS: BP 112/68; PULSE 60; RESP 14; TEMP 36.9; O2SAT 99
[2022-12-03 06:21] LABS: Absolute Lymphocyte Count 1.24 X10^3/uL (0.83-4.51); Absolute Neutrophil Count 5.7 X10^3/uL (2.0-7.7); Basophil# 0.05 X10^3/uL; Basophil% 0.6 % (0-1); Eosinophil# 0.09 X10^3/uL; Eosinophils% 1.2 % (0-5); Hematocrit 47.4 % (40-54); Hemoglobin 15.9 g/dL (13.0-16.5); Lymphocyte # 1.24 X10^3/ul (0.83-4.51); Lymphocyte % 16.1 % (19-41); Mean Corp Hgb Conc 33.5 g/dL (32-36); Mean Corpuscular Volume 98.3 fL (80-94); Mean Platelet Vol. 11.2 fl (6.2-12.0); Monocyte# 0.66 X10^3/uL; Monocyte% 8.6 % (0-10); NRBC Flagged by Analyzer 0 % (0-5); Neutrophil # 5.65 X10^3/uL (2.7-7.7); Neutrophil % 73.4 % (47-70); Platelet Count 154 K/mm3 (150-450); RBC Distribution Width CV 12.4 % (11.6-14.6); Red Blood Count 4.82 M/mm3 (4.6-6.2); White Blood Count 7.7 K/mm3 (4.4-11.0)
[2022-12-03 06:54] LABS: ALB/GLOB Ratio 1.1 RATIO (0.9-2.4); AST(SGOT) 16 U/L (15-37); Alanine Aminotransfer ALT/SGPT 27 U/L (16-61); Albumin, Serum 3.3 g/dL (3.2-5.0); Alkaline Phosphatase 62 U/L (45-117); Anion Gap 2 (5-15); BUN 9 mg/dL (7-18); BUN/Creat Ratio 8.3 RATIO (10-20); Calcium,Total 8.4 mg/dL (8.5-10.1); Chloride 111 mmol/L (98-107); Creatinine, Serum 1.09 mg/dL (0.70-1.30); EST Glomerular Filtration Rate 82 mL/min (>60); Est Glom Filt Rate - Afr Amer 99 mL/min (>60); Estimated Creatinine Clearance 104.81 ml/min; Globulin 2.9 g/dL (2.2-4.2); Glucose 106 mg/dL (74-106); Potassium 4.3 mmol/L (3.5-5.1); Protein, Total 6.2 g/dL (6.4-8.2); Sodium Level 141 mmol/L (136-145)
[2022-12-03 07:59] VITALS: BP 115/73; PULSE 76; RESP 18; TEMP 36.7; O2SAT 94
--- NOTE | 2022-12-03 08:40 | PCM.PN.HOSP ---
Reason for Visit Reason for Visit: Diagnoses Unspecified acute appendicitis (12/02/22) Abnormal findings on diagnostic imaging of other parts of digestive tract (12/02/22) Subjective Subjective Reports abdominal pain is somewhat improved with the present still. Objective Data Objective Data Vital Signs: Vital Signs Temp Pulse Resp BP Pulse Ox O2 Del Method 98.0 F 76 18 115/73 94 Room Air 12/03/22 07:59 12/03/22 07:59 12/03/22 07:59 12/03/22 07:59 12/03/22 07:59 12/03/22 07:59 Oxygen Delivery Method Room Air Weight: 90.718 kg Body Mass Index (BMI) 27.1 Intake & Output: Intake and Output for Last 24 Hours 12/01/22 12/02/22 12/03/22 23:59 23:59 23:59 Intake Total 2936.67 / 2936.67 298.33 / 298.33 Balance 2936.67 / 2936.67 298.33 / 298.33 Lab / Micro Data Result Diagrams: 12/03/22 05:40 12/03/22 05:40 Labs: Laboratory Results - last 24 hr 12/02/22 09:46: WBC 8.4, RBC 5.01, Hgb 16.7 H, Hct 48.7, MCV 97.2 H, MCH 33.3 H, MCHC 34.3, RDW Std Deviation 43.8, RDW Coeff of Erin 12.3, Plt Count 178, MPV 10.9, Immature Gran % (Auto) 0.200, Neut % (Auto) 89.5 H, Lymph % (Auto) 6.0 L, [place] % (Auto) 3.9, Eos % (Auto) 0.2, Baso % (Auto) 0.2, Absolute Neuts (auto) 7.5, Absolute Lymphs (auto) 0.50 L, Nucleated RBC % 0, Differential Comment SCANNED 12/02/22 09:46: Sodium 139, Potassium 4.5, Chloride 107, Carbon Dioxide 30.0, Anion Gap 2 L, BUN 15, Creatinine 1.15, Estim Creat Clear Calc 99.34, Est GFR (MDRD) Af Amer 93, Est GFR (MDRD) Non-Af 77, BUN/Creatinine Ratio 13.0, Glucose 122 H, Calcium 9.0, Total Bilirubin 0.60, AST 19, ALT 31, Alkaline Phosphatase 67, Total Protein 7.3, Albumin 4.0, Globulin 3.3, Albumin/Globulin Ratio 1.2, Lipase 93 12/02/22 09:46: Magnesium 2.3 12/02/22 10:25: Urine Color Yellow, Urine Clarity Clear, Urine pH 8.0, Ur Specific [place] 1.010, Urine Protein 30 H, Urine Glucose (UA) Normal, Urine Ketones 5 H, Urine Occult Blood Negative, Urine Nitrite Negative, Urine Bilirubin Negative, Urine Urobilinogen Normal, Ur Leukocyte Esterase 25 H, Urine RBC 0 SEEN, Urine WBC 0 SEEN, Ur Squamous Epith Cells 0 SEEN, Urine Bacteria 0 SEEN, Urine Mucus 1+ 12/03/22 05:40: WBC 7.7, RBC 4.82, Hgb 15.9, Hct 47.4, MCV 98.3 H, MCH 33.0 H, MCHC 33.5, RDW Std Deviation 45.0 H, RDW Coeff of [place] 12.4, Plt Count 154, MPV 11.2, Immature Gran % (Auto) 0.100, Neut % (Auto) 73.4 H, Lymph % (Auto) 16.1 L, [place] % (Auto) 8.6, Eos % (Auto) 1.2, Baso % (Auto) 0.6, Absolute Neuts (auto) 5.7, Absolute Lymphs (auto) 1.24, Nucleated RBC % 0 12/03/22 05:40: Sodium 141, Potassium 4.3, Chloride 111 H, Carbon Dioxide 28.0, Anion Gap 2 L, BUN 9, Creatinine 1.09, Estim Creat Clear Calc 104.81, Est GFR (MDRD) Af Amer 99, Est GFR (MDRD) Non-Af 82, BUN/Creatinine Ratio 8.3 L, Glucose 106, Calcium 8.4 L, Total Bilirubin 1.10 H, AST 16, ALT 27, Alkaline Phosphatase 62, Total Protein 6.2 L, Albumin 3.3, Globulin 2.9, Albumin/Globulin Ratio 1.1 Radiography Diagnostic Testing: Radiology Impression Abdomen/Pelvis CT 12/02/22 09:40 IMPRESSION: Findings in keeping with a noncomplicated appendicitis. Circumferential thickening of the terminal ileum. Crohn''s disease should be ruled out. Electronically Signed: Gui Capellan MD at 11:04 EDT , Physical Exam Narrative General: Alert, oriented, no apparent distress HEENT: Atraumatic, normocephalic Eyes: Anicteric, normal conjunctiva, extraocular movements grossly intact Neck: Supple Respiratory: Clear to auscultation bilaterally, normal respiratory effort Cardiovascular: Regular rate and rhythm GI: soft, non distended, tender to palpation primarily periumbilically, no r/g/r Extremities: No edema Musculoskeletal: Moving all extremities Neuro: No overt focal neurological deficits Skin: No rashes appreciated Psych: Cooperative Assessment & Plan Assessment/Plan (1) Acute appendicitis: (2) Abnormal computed tomography of cecum and terminal ileum: PLAN: Plan #acute appendicits -seen on CT scan -d/w surgery, presently conservative measures recommended -will keep on zosyn and CLD #terminal ileum inflammation -Seen on CT scan and questioned crohn's dz, GI consulted. -pain control, zofran prn #anxiety -cont effexor -supportive care DVT ppx: SCDs Charges/Coding Visit Charges Inpatient E&M: 66352 Subs Hosp L1
[2022-12-03] MEDS: Venlafaxine XR 37.5 MG Capsule PO (09:20)
--- NOTE | 2022-12-03 09:40 | CASEMGMT ---
JOY DESHPANDE DC Planning Assessment: Face to Face with patient for initial transition planning/care coordination assessment. JOY DESHPANDE introduced self and role at [facility], pt voices understanding and is agreeable to participating in assessment. Care providers, pharmacy, and demographics verified. Admitting Dx: appendicitis LACE stratification: 1 PCP: Phil Specialists: none Preferred Pharmacy: [facility] Insurance: [employer], MMO Prescription Benefit: yes Living Will/HPOA: None LNOK: Gabby Living Arrangements: Pt lives with his spouse and is independent with all ADLs including self-care and household tasks. Transportation: Pt drives and denies any concerns with transportation. States he has a ride home when discharged DME/SNF/HHC: none Plan: Pt plans to return home at discharge and denies any foreseen discharge needs at this time. Will continue to monitor and assist with any dc needs as identified. Raymundo Pastor RN CM
[2022-12-03 13:46] VITALS: BP 124/81; PULSE 67; RESP 18; TEMP 36.8; O2SAT 99
[2022-12-03 13:59] VITALS: BP 124/81; PULSE 67; RESP 18; TEMP 36.8; O2SAT 99
[2022-12-03 17:34] LABS: Erythrocyte Sedimentation Rate 6 mm/hr (0-20)
[2022-12-03 17:48] LABS: Rheumatoid Factor < 10.0 IU/mL (<15)
[2022-12-03] MEDS: Bisacodyl 5 MG Tablet 20 MG PO (20:17)
[2022-12-03] MEDS: Polyethylene Glycol 3350 BOWEL PREP PO (20:22)
[2022-12-03 20:30] VITALS: BP 127/75; PULSE 74; RESP 16; TEMP 37.5; O2SAT 100
--- NOTE | 2022-12-03 20:31 | EKG12_ITS ---
Test Reason : CHEST PAIN Blood Pressure : / mmHG Vent. Rate : 069 BPM Atrial Rate : 069 BPM P-R Int : 168 ms QRS Dur : 094 ms QT Int : 366 ms P-R-T Axes : 066 002 028 degrees QTc Int : 392 ms Sinus rhythm with marked sinus arrhythmia Otherwise normal ECG Confirmed by JT BEDOLLA, SHIVANI ([id number]), newspaper managing editor LUCIUS DOMINGUEZ ([id number]) on 12/09/2022 7:50:29 AM Referred By: FLOR Confirmed By:CLARISSA WATERS MD
--- NOTE | 2022-12-03 21:00 | CON.PCM.GI_ITS ---
HPI Consult Data Date of Consult: 12/03/22 HPI Narrative Reason for Consultation: Abnormal CT scan HPI Narrative: MARY SANCHEZ, is a 32-year-old male who denies significant past medical history presents to the ED with right lower quadrant abdominal pain that began at around 430 this morning, approximately 5 hours ago.? He states it woke him from sleep.? It started out as periumbilical pain, but has since moved to the right lower quadrant.? He denies any fevers or chills.? He was going to go see his primary care provider but he became nauseated and vomited without any blood in his emesis.? He denies any dysuria or hematuria. There was a suspicion for appendicitis. Therefore a CT scan of the abdomen was ordered. The radiologist reported inflammation of the terminal ileum possibly secondary to IBD. Therefore, I was consulted for management. He was started on antibiotics. He is feeling better. He has a strong family history of Autoimmune disease in his father and Aunt. [facility] Medical History Anxiety Heart murmur of Home Medications GENIUS MUSHROOMS 1 tab PO/SL DAILY SUPPLEMENT 12/02/22 [History Last Taken 11/30/22] Thc Gummies 15 - 150 mg PO/SL DAILY PRN Anxiety 12/02/22 [History Last Taken 12/01/22] desvenlafaxine succinate 50 mg tablet,extended release 24 hr 50 mg PO DAILY FOCUS 12/02/22 [History Last Taken 11/30/22] bvqkejqf-psmxqdhu-ihavy acid 400 mcg-vit K 20 mcg-lycop 300 mcg tablet 1 tab PO DAILY SUPPLEMENT 12/02/22 [History Last Taken 12/02/22] Allergy/AdvReac Type Severity Reaction Status Date / Time No Known Allergies Allergy Verified 12/02/22 09:17 Social History Smoking Status: Former smoker ROS Constitutional Constitutional: Reports anorexia; Denies chills ENT HEENT: Denies dizziness Cardiovascular Cardiovascular: Denies chest pain Respiratory/Chest Respiratory/Chest: Denies shortness of breath at rest Gastrointestinal Gastrointestinal: Reports abdominal pain, diarrhea and nausea; Denies constipation, heartburn, hematemesis or melena Genitourinary Genitourinary: Denies burning urination Musculoskeletal Musculoskeletal: Denies joint pain Integumentary Integumentary: Denies rash Neurologic Neurologic: Denies focal weakness Psychiatric Psychiatric: Denies depression Endocrine Endocrinology: Denies palpitations Hematologic/Lymphatic Hematologic/Lymphatic: Denies anemia or easy bleeding Physical Exam Narrative General: Alert, oriented, no apparent distress HEENT: Atraumatic, normocephalic Eyes: Anicteric, normal conjunctiva, extraocular movements grossly intact Neck: Supple Respiratory: Clear to auscultation bilaterally, normal respiratory effort Cardiovascular: Regular rate and rhythm GI: soft, non distended, tender to palpation primarily periumbilically, no r/g/r Extremities: No edema Musculoskeletal: Moving all extremities Neuro: No overt focal neurological deficits Skin: No rashes appreciated Psych: Cooperative Lab / Micro Data Result Diagrams: 12/03/22 05:40 12/03/22 05:40 Labs: Laboratory Results - last 24 hr 12/03/22 05:40: WBC 7.7, RBC 4.82, Hgb 15.9, Hct 47.4, MCV 98.3 H, MCH 33.0 H, MCHC 33.5, RDW Std Deviation 45.0 H, RDW Coeff of Erin 12.4, Plt Count 154, MPV 11.2, Immature Gran % (Auto) 0.100, Neut % (Auto) 73.4 H, Lymph % (Auto) 16.1 L, [place] % (Auto) 8.6, Eos % (Auto) 1.2, Baso % (Auto) 0.6, Absolute Neuts (auto) 5.7, Absolute Lymphs (auto) 1.24, Nucleated RBC % 0 12/03/22 05:40: Sodium 141, Potassium 4.3, Chloride 111 H, Carbon Dioxide 28.0, Anion Gap 2 L, BUN 9, Creatinine 1.09, Estim Creat Clear Calc 104.81, Est GFR (MDRD) Af Amer 99, Est GFR (MDRD) Non-Af 82, BUN/Creatinine Ratio 8.3 L, Glucose 106, Calcium 8.4 L, Total Bilirubin 1.10 H, AST 16, ALT 27, Alkaline Phosphatase 62, Total Protein 6.2 L, Albumin 3.3, Globulin 2.9, Albumin/Globulin Ratio 1.1 12/03/22 05:40: ESR 6 03/29/23 05:40: C-React Prot Ext Range 25.30 H, Rheumatoid Factor < 10.0 Assessment & Plan Assessment/Plan (1) Abnormal computed tomography of cecum and terminal ileum: PLAN: There is possibilty of IBD by the presentation and the imaging. He will need to undergo a colonoscopy with evaluation of the terminal ileum. I will also check CRP, ESR, IBD panel, Hepatitis panel and quantiferon gold (in antipication for immunosuppression). Charges/Coding Visit Charges Inpatient E&M: 59750 Init Hosp L2
--- NOTE | 2022-12-03 21:01 | PCM.PN.BLA ---
Progress Note Nurse reports off and on chest pain. EKG with no ST elevation. Will give full dose aspirin. GI cocktail. Will get chest x-ray. Cardiac enzymes ordered. Query anxiety with patient age and history of anxiety for which reason he takes Effexor.
--- NOTE | 2022-12-03 21:02 | RAD_ITS ---
INDICATION: chest pain EXAMINATION/TECHNIQUE: X-RAY - XR Chest 1 View COMPARISON: November 15, 2022. FINDINGS: LINES/DEVICES: None. LUNGS: Focal left retrocardiac infiltrate.. No pneumothorax. MEDIASTINUM AND CARDIOVASCULAR STRUCTURES: Cardiac silhouette not enlarged. Central airways and mediastinal contour are unremarkable. BONES AND SOFT TISSUES: Unremarkable. RAD/Chest 1 View (Portable) IMPRESSION: Focal left basilar retrocardiac infiltrate. Electronically Signed: David Dunlap DO at 22:22 EDT ,
[2022-12-03] MEDS: Aspirin 325 MG Tablet PO (21:18)
[2022-12-03 21:39] LABS: Troponin-I HS 3 pg/mL (3.0-78.0)
[2022-12-03 23:51] LABS: Troponin-I HS 4 pg/mL (3.0-78.0)
[2022-12-04 02:24] VITALS: BP 108/65; PULSE 80; RESP 18; TEMP 36.9; O2SAT 100
[2022-12-04 03:33] LABS: Absolute Lymphocyte Count 0.72 X10^3/uL (0.83-4.51); Absolute Neutrophil Count 4.9 X10^3/uL (2.0-7.7); Basophil# 0.03 X10^3/uL; Basophil% 0.5 % (0-1); Eosinophil# 0.03 X10^3/uL; Eosinophils% 0.5 % (0-5); Hematocrit 46.5 % (40-54); Hemoglobin 15.7 g/dL (13.0-16.5); Lymphocyte # 0.72 X10^3/ul (0.83-4.51); Lymphocyte % 11.6 % (19-41); Mean Corp Hgb Conc 33.8 g/dL (32-36); Mean Corpuscular Hgb 32.7 pg (27.0-32.0); Mean Corpuscular Volume 96.9 fL (80-94); Mean Platelet Vol. 10.9 fl (6.2-12.0); Monocyte# 0.52 X10^3/uL; Monocyte% 8.4 % (0-10); NRBC Flagged by Analyzer 0 % (0-5); Neutrophil # 4.91 X10^3/uL (2.7-7.7); Neutrophil % 78.8 % (47-70); Platelet Count 163 K/mm3 (150-450); RBC Distribution Width CV 12.1 % (11.6-14.6); RBC Distribution Width SD 43.1 fl (35.1-43.9); White Blood Count 6.2 K/mm3 (4.4-11.0)
[2022-12-04 03:55] LABS: Anion Gap 4 (5-15); BUN 5 mg/dL (7-18); BUN/Creat Ratio 4.9 RATIO (10-20); Calcium,Total 8.5 mg/dL (8.5-10.1); Chloride 109 mmol/L (98-107); Creatinine, Serum 1.02 mg/dL (0.70-1.30); EST Glomerular Filtration Rate 89 mL/min (>60); Est Glom Filt Rate - Afr Amer 107 mL/min (>60); Glucose 97 mg/dL (74-106); Potassium 3.5 mmol/L (3.5-5.1); Sodium Level 140 mmol/L (136-145)
[2022-12-04 03:56] LABS: Troponin-I HS 3 pg/mL (3.0-78.0)
[2022-12-04] MEDS: 0.9% Normal Saline 1,000 ML 100 ML IV (05:11)
[2022-12-04] MEDS: Lactated Ringers 1,000 ML 15 ML IV (07:40)
--- NOTE | 2022-12-04 07:45 | COLBX_PTH ---
PATIENT: MARY SANCHEZ LOC: MS3 U#:[id number] AGE/SX: 32/M ROOM: [facility] [place] RE12/02/[address]: Dr. Heydi Black MD : 1990 BED: 1 DIS: 12/04/2022 SPEC #: [id number] RECD: 12/04/22 12:55 STATUS: MORTEZA REQ #: [id number] DAYANA: 12/04/22 07:[address]: Wilian Land DEPT: SURGICAL PATHOLOGY RECD BY: Kirsten Rodriguez ENTERED: 12/04/22 13:29 SP TYPE: COLON BX OTHR DR: MD Dr. Heydi Ch MD Dr. Tamera Robotham, MD Tissues: A - Ileum, NOS B - COLON BIOPSY C - COLON BIOPSY Procedures: Surgery Specimen Level IV Comments: @ Ordering doctor for SUIV edited from to @ by CHRISTIAN at 12/04/22 153 @ Submitting doctor edited from to @ by RGOOD at 12/04/22 1532 HEADER OPERATION: Colonoscopy (MAC), biopsy PRE-OP DIAGNOSIS: Abnormal CT of cecum and terminal ileum TISSUE SUBMITTED: A ? Terminal ileum biopsy, B ? Random colonic biopsy, C ? Splenic flexure lipoma biopsy MICROSCOPIC DIAGNOSIS A. Terminal ileum, biopsy: Fragments of small intestinal mucosa, no pathologic diagnosis. B. Colon, random biopsy: Fragments of colonic mucosa, no pathologic diagnosis. C. Splenic flexure lipoma, biopsy: Fragments of colonic mucosa, no pathologic diagnosis. See comment. SJ:rg 12/05/2022 COMMENT C. Changes consistent with submucosal lipoma are not seen. Correlation with clinical, endoscopic findings and appropriate follow up are necessary. MICROSCOPIC DESCRIPTION Slides are reviewed. GROSS DESCRIPTION A - Received in fixative is one container labeled with the patient's name and designated terminal ileum biopsy. The specimen consists of two irregular fragments of light kaufman soft tissue that in aggregate measure 1.0 x 0.4 x 0.1 cm. The specimen is totally submitted in one cassette. B - Received in fixative is one container labeled with the patient's name and designated random colonic biopsy. The specimen consists of two irregular fragments of light kaufman soft tissue that in aggregate measure 0.6 x 0.4 x 0.1 cm. The specimen is totally submitted in one cassette. C - Received in fixative is one container labeled with the patient's name and designated splenic flexure lipoma biopsy. The specimen consists of multiple irregular fragments of light kaufman soft tissue that in aggregate measure 0.9 x 0.5 x 0.1 cm. The specimen is totally submitted in one cassette. / SJ:rg 12/04/2022 TC:4 CPT: 19117 x3
[2022-12-04 08:20] VITALS: BP 100/58; BP 105/65; PULSE 81; RESP 18; TEMP 36.4; O2SAT 98
--- NOTE | 2022-12-04 08:24 | OP.COLON_ITS ---
Patient Name: Quinn Sahu Procedure Date: 12/04/2022 7:50 AM Date of : 1990 Age: 32 Procedure: Colonoscopy Indications: Abdominal pain in the right lower quadrant, Abnormal CT of the GI tract Providers: Wilian Land DO Medicines: Monitored Anesthesia Care Patient Profile: This is a 32 year old male. Refer to note in patient chart for documentation of history and physical. Last Colonoscopy: none. The patient's first colonoscopy is today. Complications: No immediate complications. Procedure: Pre-Anesthesia Assessment: - Prior to the procedure, a History and Physical was performed, and patient medications and allergies were reviewed. The patient is competent. The risks and benefits of the procedure and the sedation options and risks were discussed with the patient. All questions were answered and informed consent was obtained. Patient identification and proposed procedure were verified by the physician. Mental Status Examination: alert and oriented. Prophylactic Antibiotics: The patient does not require prophylactic antibiotics. Prior Anticoagulants: The patient has taken no previous anticoagulant or antiplatelet agents. After reviewing the risks and benefits, the patient was deemed in satisfactory condition to undergo the procedure. The anesthesia plan was to use moderate sedation / analgesia (conscious sedation). Immediately prior to administration of medications, the patient was re-assessed for adequacy to receive sedatives. The heart rate, respiratory rate, oxygen saturations, blood pressure, adequacy of pulmonary ventilation, and response to care were monitored throughout the procedure. The physical status of the patient was re-assessed after the procedure. After I obtained informed consent, the scope was passed under direct vision. Throughout the procedure, the patient's blood pressure, pulse, and oxygen saturations were monitored continuously. The colonoscope was introduced through the anus and advanced to the terminal ileum. The colonoscopy was performed without difficulty. The patient tolerated the procedure well. The quality of the bowel preparation was adequate. Scope In: 7:57:30 AM Scope Withdrawal Time 0 hours 16 minutes 6 seconds Scope Out: 8:17:03 AM Total Procedure Duration Time 0 hours 19 minutes 33 seconds Findings: The perianal and digital rectal examinations were normal. There was a large lipoma, 5 mm in diameter, at the splenic flexure. The polyp was removed with a cold snare. Polyp resection was incomplete. The resected tissue was retrieved. Verification of patient identification for the specimen was done. Estimated blood loss was minimal. An area of mildly congested mucosa was found at the hepatic flexure, in the ascending colon and in the cecum. Biopsies were taken with a cold forceps for histology. Verification of patient identification for the specimen was done. Estimated blood loss was minimal. The terminal ileum appeared normal. Biopsies were taken with a cold forceps for histology. Verification of patient identification for the specimen was done. Estimated blood loss was minimal. Impression: - Large lipoma at the splenic flexure. - Congested mucosa at the hepatic flexure, in the ascending colon and in the cecum. Biopsied. - The examined portion of the ileum was normal. Biopsied. Recommendation: - Discharge patient to home. - Resume regular diet. - Continue present medications. - Repeat colonoscopy is recommended. The colonoscopy date will be determined after pathology results from today's exam become available for review. Procedure Code(s): --- Professional --- 24507, Colonoscopy, flexible; with removal of tumor(s), polyp(s), or other lesion(s) by snare technique 03217, 59, Colonoscopy, flexible; with biopsy, single or multiple CPT copyright 2017 [employer]. All rights reserved. The codes documented in this report are preliminary and upon hcc coders review may be revised to meet current compliance requirements. Wilian Land DO 12/04/2022 8:24:18 AM This report has been signed electronically. Number of Addenda: 0 Note Initiated On: 12/04/2022 7:50 AM
[2022-12-04 08:25] VITALS: BP 100/58; BP 105/70; PULSE 77; RESP 16; O2SAT 94
--- NOTE | 2022-12-04 08:25 | OP.CCLET_ITS ---
12/04/2022 Karan Villarreal [address] [place] [address] Re : Colonoscopy procedure for Quinn Sahu Dear Dr. Villarreal This procedure was performed on November. My impressions and recommendations are as follows: Impressions : - Large lipoma at the splenic flexure. - Congested mucosa at the hepatic flexure, in the ascending colon and in the cecum. Biopsied. - The examined portion of the ileum was normal. Biopsied. Recommendations : - Discharge patient to home. - Resume regular diet. - Continue present medications. - Repeat colonoscopy is recommended. The colonoscopy date will be determined after pathology results from today's exam become available for review. My findings are described in the full procedure note, which is enclosed. If I can be of further assistance, please feel free to contact me at . Sincerely, Wilian Land, 12/04/2022 8:24:18 AM This report has been signed electronically.
--- NOTE | 2022-12-04 08:28 | PCM.PN.HOSP ---
Reason for Visit Reason for Visit: Diagnoses Unspecified acute appendicitis (12/02/22) Abnormal findings on diagnostic imaging of other parts of digestive tract (12/02/22) Subjective Subjective Follow-up ileal inflammation and appendicitis Objective Data Objective Data Vital Signs: Vital Signs Temp Pulse Resp BP Pulse Ox O2 Del Method 97.5 F L 77 16 105/70 94 Room Air 12/04/22 08:20 12/04/22 08:25 12/04/22 08:25 12/04/22 08:25 12/04/22 08:25 12/04/22 08:25 Oxygen Delivery Method Room Air Weight: 90.718 kg Body Mass Index (BMI) 27.1 Intake & Output: Intake and Output for Last 24 Hours 12/02/22 12/03/22 12/04/22 23:59 23:59 23:59 Intake Total 2936.67 / 2936.67 4526.66 / 4526.66 1198.75 / 1198.75 Balance 2936.67 / 2936.67 4526.66 / 4526.66 1198.75 / 1198.75 Lab / Micro Data Result Diagrams: 12/04/22 03:17 12/04/22 03:17 Labs: Laboratory Results - last 24 hr 12/03/22 05:40: ESR 6 12/03/22 05:40: C-React Prot Ext Range 25.30 H, Rheumatoid Factor < 10.0 12/03/22 21:14: Troponin I High Sens 3 12/03/22 23:12: Troponin I High Sens 4 12/04/22 03:17: WBC 6.2, RBC 4.80, Hgb 15.7, Hct 46.5, MCV 96.9 H, MCH 32.7 H, MCHC 33.8, RDW Std Deviation 43.1, RDW Coeff of Erin 12.1, Plt Count 163, MPV 10.9, Immature Gran % (Auto) 0.200, Neut % (Auto) 78.8 H, Lymph % (Auto) 11.6 L, [place] % (Auto) 8.4, Eos % (Auto) 0.5, Baso % (Auto) 0.5, Absolute Neuts (auto) 4.9, Absolute Lymphs (auto) 0.72 L, Nucleated RBC % 0 12/04/22 03:17: Sodium 140, Potassium 3.5, Chloride 109 H, Carbon Dioxide 27.0, Anion Gap 4 L, BUN 5 L, Creatinine 1.02, Estim Creat Clear Calc 112.00, Est GFR (MDRD) Af Amer 107, Est GFR (MDRD) Non-Af 89, BUN/Creatinine Ratio 4.9 L, Glucose 97, Calcium 8.5 12/04/22 03:17: Troponin I High Sens 3 Radiography Diagnostic Testing: Radiology Impression Chest X-Ray 12/03/22 21:02 IMPRESSION: Focal left basilar retrocardiac infiltrate. Electronically Signed: David Dunlap DO at 22:22 EDT , Physical Exam Narrative General: Alert, oriented, no apparent distress HEENT: Atraumatic, normocephalic Eyes: Anicteric, normal conjunctiva, extraocular movements grossly intact Neck: Supple Respiratory: Clear to auscultation bilaterally, normal respiratory effort Cardiovascular: Regular rate and rhythm GI: soft, non distended, tender to palpation primarily periumbilically, no r/g/r Extremities: No edema Musculoskeletal: Moving all extremities Neuro: No overt focal neurological deficits Skin: No rashes appreciated Psych: Cooperative Assessment & Plan Assessment/Plan (1) Acute appendicitis: (2) Abnormal computed tomography of cecum and terminal ileum: PLAN: Plan #acute appendicits -seen on CT scan -d/w surgery, presently conservative measures recommended -will keep on zosyn and CLD -12/04: Colonoscopy today #terminal ileum inflammation -Seen on CT scan and questioned crohn's dz, GI consulted. -pain control, zofran prn #anxiety -cont effexor -supportive care DVT ppx: SCDs
[2022-12-04 08:30] VITALS: BP 100/58; BP 106/68; PULSE 80; RESP 16; O2SAT 97
[2022-12-04 08:35] VITALS: BP 100/58; BP 104/59; PULSE 80; RESP 18; TEMP 36.4; O2SAT 96
[2022-12-04] MEDS: Venlafaxine XR 37.5 MG Capsule PO (08:56)
[2022-12-04 09:10] VITALS: BP 106/70; PULSE 72; RESP 16; TEMP 37.1; O2SAT 98
--- NOTE | 2022-12-04 12:46 | PCM.DC.SUM ---
Providers Date of Admission: 12/02/22 Date of Discharge: 12/04/22 Primary Care Physician: Dr. Karan Villarreal MD Consultations 12/02/22 14:47 Consult: Gastroenterology Routine Consulting Provider: [facility] Reason for Consult: concern for crohns dz, terminal ileum inflammation, abd pain EMERGENT Consult: No Notified: Yes Date Notified: 12/02/22 Time Notified: 12:27 Method of Notification: Text Consult: General Surgery Routine Consulting Provider: Cayla Mcguire Reason for Consult: appendicitis EMERGENT Consult: No Notified: Yes Date Notified: 12/02/22 Time Notified: 12:27 Method of Notification: ED Physician Initiated Reason For Visit: APPENDICITIS Diagnosis Discharge Diagnosis (1) Acute appendicitis: Status: Acute Code(s): K35.80 - Unspecified acute appendicitis (2) Abnormal computed tomography of cecum and terminal ileum: Status: Acute Code(s): R93.3 - Abnormal findings on diagnostic imaging of other parts of digestive tract Medications at Discharge Home Medications GENIUS MUSHROOMS 1 tab PO/SL DAILY SUPPLEMENT 12/02/22 Thc Gummies 15 - 150 mg PO/SL DAILY PRN Anxiety 12/02/22 desvenlafaxine succinate 50 mg tablet,extended release 24 hr 50 mg PO DAILY FOCUS 12/02/22 uabpjeus-qpgngoan-ohmxj acid 400 mcg-vit K 20 mcg-lycop 300 mcg tablet 1 tab PO DAILY SUPPLEMENT 12/02/22 ciprofloxacin HCl 500 mg tablet (Cipro) 500 mg PO Q12H 10 days #20 tabs 12/04/22 metronidazole 500 mg tablet 500 mg PO Q8H 10 days #30 tabs 12/04/22 Hospital Course Procedures - (Colonoscopy) Summary of Care Provided Minutes Spent on Discharge: 31 Hospital Course: MARY SANCHEZ, is a 32 M with a history of anxiety who presented to [facility] 12/02/2022 with abdominal pain that woke him up at 4 AM.? In the ED he had a CT of his abdomen and pelvis which showed noncomplicated appendicitis as well as circumferential thickening of terminal ileum concerning for Crohn's disease, surgery contacted and given the concern for possible Crohn's disease as well as him being stable, acute surgical intervention not warranted and hospitalist admission requested. Discussed with surgery and started IV antibiotics and consulted GI. GI evaluated and ordered broad lab work-up and took for colonoscopy on 12/04/2022. Colonoscopy reported the examined portion of the ileum was normal but it was biopsied, a large lipoma at the splenic flexure, congested mucosa at the hepatic flexure and the ascending colon and the cecum which was biopsied. Spoke with GI and surgery, will discharge for outpatient follow-up on Cipro and Flagyl for 10 days. On day of discharge patient has mild abdominal tenderness but feeling much better no more nausea or vomiting. No other complaints and would like to go home. Discharge instructions as followed: -You will be discharged with 10 days of antibiotics, ciprofloxacin which we will take twice daily and metronidazole which you will take 3 times daily.? These have been sent to the [facility] on [address] in [place], [place] -Strongly recommend against drinking alcohol while on metronidazole as the combination can cause nausea, vomiting, racing heart, and flushing of the face.? Avoid alcohol for at least 3 days after last dose of metronidazole. -Please follow-up with surgery upon discharge for an appendicitis follow-up.? Please call upon discharge to schedule hospital follow-up appointment -You will need to follow-up with Dr. Land with GI in his office upon discharge.? Please call his office to schedule your hospital follow-up appointment (ph. [phone]) -Continue other home medications -Please call your primary care provider's office upon discharge to schedule a hospital follow up within 1 week. -For any concerning signs or symptoms please call 911 or proceed to the nearest emergency department Physical Exam Narrative General: Alert, oriented, no apparent distress HEENT: Atraumatic, normocephalic Eyes: Anicteric, normal conjunctiva, extraocular movements grossly intact Neck: Supple Respiratory: Clear to auscultation bilaterally, normal respiratory effort Cardiovascular: Regular rate and rhythm GI: Soft, minimal tenderness without rebound, guarding, rigidity,, nondistended Extremities: No edema Musculoskeletal: Moving all extremities Neuro: No overt focal neurological deficits Skin: No rashes appreciated Psych: Cooperative Weight / BMI Weight Weight: 90.718 kg Body Mass Index (BMI) 27.1 ABG / Lab / Microbiology Data Result Diagrams: 12/04/22 03:17 12/04/22 03:17 Laboratory: Laboratory Results - last 24 hr 12/03/22 05:40: ESR 6 12/03/22 05:40: C-React Prot Ext Range 25.30 H, Rheumatoid Factor < 10.0 12/03/22 21:14: Troponin I High Sens 3 12/03/22 23:12: Troponin I High Sens 4 12/04/22 03:17: WBC 6.2, RBC 4.80, Hgb 15.7, Hct 46.5, MCV 96.9 H, MCH 32.7 H, MCHC 33.8, RDW Std Deviation 43.1, RDW Coeff of Erin 12.1, Plt Count 163, MPV 10.9, Immature Gran % (Auto) 0.200, Neut % (Auto) 78.8 H, Lymph % (Auto) 11.6 L, [place] % (Auto) 8.4, Eos % (Auto) 0.5, Baso % (Auto) 0.5, Absolute Neuts (auto) 4.9, Absolute Lymphs (auto) 0.72 L, Nucleated RBC % 0 12/04/22 03:17: Sodium 140, Potassium 3.5, Chloride 109 H, Carbon Dioxide 27.0, Anion Gap 4 L, BUN 5 L, Creatinine 1.02, Estim Creat Clear Calc 112.00, Est GFR (MDRD) Af Amer 107, Est GFR (MDRD) Non-Af 89, BUN/Creatinine Ratio 4.9 L, Glucose 97, Calcium 8.5 12/04/22 03:17: Troponin I High Sens 3 Radiography Diagnostic Testing: Radiology Impression Chest X-Ray 12/03/22 21:02 IMPRESSION: Focal left basilar retrocardiac infiltrate. Electronically Signed: David Dunlap DO at 22:22 EDT Reading Location ID and State: [facility] / [place] Tel [phone], Service support , D/C Instructions Discharge Diet: No restrictions Meaningful Use Info Meaningful Use Diagnoses (Choose all that apply): None applicable Discharge Plan Admission Admit Date/Time: 12/02/22 12:24 Primary Reason for Your Visit: Appendicitis Attending Provider: Heydi Black Primary Care Provider: Karan Villarreal Consulting Providers: Cayla Mcguire Instructions Patient Instructions: What Is Appendicitis? Additional Instructions / Restrictions: DISCHARGE INSTRUCTIONS PLEASE READ *Please take this with you to your next doctors appointment* -You will be discharged with 10 days of antibiotics, ciprofloxacin which we will take twice daily and metronidazole which you will take 3 times daily. These have been sent to the [facility] [address] in [place], [place] -Strongly recommend against drinking alcohol while on metronidazole as the combination can cause nausea, vomiting, racing heart, and flushing of the face. Avoid alcohol for at least 3 days after last dose of metronidazole. -Please follow-up with surgery upon discharge for an appendicitis follow-up. Please call upon discharge to schedule hospital follow-up appointment -You will need to follow-up with Dr. Land with GI in his office upon discharge. Please call his office to schedule your hospital follow-up appointment (ph. [phone]) -Continue other home medications -Please call your primary care provider's office upon discharge to schedule a hospital follow up within 1 week. -For any concerning signs or symptoms please call 911 or proceed to the nearest emergency department Discharge Orders/Prescriptions Prescriptions: New ciprofloxacin HCl [Cipro] 500 mg tablet 500 mg PO Q12H 10 Days Qty: 20 0RF metronidazole 500 mg tablet 500 mg PO Q8H 10 Days Qty: 30 0RF Continued desvenlafaxine succinate 50 mg tablet extended release 24 hr 50 mg PO DAILY Label Comments: TAKE 1 TABLET BY MOUTH ONCE DAILY ahwozbvj-diy-orfsf-vit K-lycop 400-20-300 mcg Tablet 1 tab PO DAILY GENIUS MUSHROOMS 1 tab PO/SL DAILY Thc Gummies 15 - 150 mg PO/SL DAILY PRN (Reason: Anxiety) Referrals / Follow Up: Karan Villarreal MD [Primary Care Provider] - Within 1 Week Wilian Land DO [Med Staff - Active Staff] - See Referral Note (You will need to follow-up with Dr. Land with GI in his office upon discharge. Please call his office to schedule your hospital follow-up appointment (ph. [phone])) Cayla Mcguire MD [Med Staff - Active Staff] - Within 1 Week (Please follow-up with surgery upon discharge for an appendicitis follow-up. Please call upon discharge to schedule hospital follow-up appointment) Disposition Disposition (needs filled in before D/C Order can be placed): Home, Self Care Charges/Coding Visit Charges Inpatient E&M: 28655 Disch Hosp >30min
[2022-12-05 14:08] LABS: Anti-Centromere B Ab <0.2 AI (0.0-0.9); Anti-Chromatin <0.2 AI (0.0-0.9); Anti-Jo <0.2 AI (0.0-0.9); Anti-Scleroderma-70 AB <0.2 AI (0.0-0.9); RNP Ab 0.2 AI (0.0-0.9); SJOGREN'S Anti-SS-A test < 0.2 AI (0.0-0.9); SJOGREN'S Anti-SS-B test < 0.2 AI (0.0-0.9); Smith Ab <0.2 AI (0.0-0.9)
[2022-12-05 14:57] LABS: CCP IgG Antibodies 2 units (0-19)
[2022-12-05 14:57] LABS: Anti-dsDNA Ab <1 IU/mL (0-9)
[2022-12-05 15:08] LABS: Cytoplasmic Ab (C-ANCA) <1:20 titer (Neg:<1:20)
[2022-12-05 15:10] LABS: Perinuclear Ab (P-ANCA) <1:20 titer (Neg:<1:20)
[2022-12-06 13:07] LABS: HEPATITIS B SURFACE AG Negative (Negative); Hep C Antibodies Non Reactive (Non Reactive); Hepatitis A IgM Antibody Negative (Negative); Hepatitis B Core AB IgM Negative (Negative); QNTFERON TB Mitogen Value > 10.00 IU/mL (.); QNTFERON TB Nil Value 0.28 IU/mL (.); QNTFERON TB1+ Ag Value 0.27 IU/mL (.); QNTFERON TB2+ Ag Value 0.27 IU/mL (.)
[2022-12-06 14:18] LABS: QNTIFERON TB Positive Criteria Negative (Negative)
== END 2022-12-04 13:46 | disposition home or self-care (01) | DRG 395 ==
LOC: ED 11:12 → MS3 12:39
PROVIDERS: Hospitalist; Internal Medicine Gastroenterology; Admitting Provider Internal Medicine; Emergency Provider Emergency Medicine; PCP Family Medicine; Visit Provider Internal Medicine
PROC: 0DJD8ZZ Inspection of Lower Intestinal Tract, Via Natural or Artificial Opening Endoscopic (ICD-10-PCS; CPT 45378; principal; 2022-12-04 07:40)
DX: K35.80 Unspecified acute appendicitis (principal); D17.5 Benign lipomatous neoplasm of intra-abdominal organs; F41.9 Anxiety disorder, unspecified; R93.3 Abnormal findings on diagnostic imaging of other parts of digestive tract; Z79.899 Other long term (current) drug therapy; Z87.891 Personal history of nicotine dependence; Z83.2 Family history of diseases of the blood and blood-forming organs and certain disorders involving the immune mechanism
CPT/HCPCS: 36415; 71045; 74177; 80048; 80053; 80074; 81001; 83690; 83735; 84484; 85025; 85652; 86140; 86200; 86225; 86235; 86256; 86431; 86480; 88305; 93005; 97802; 99284; J7030; J7120; Q9967; A4216; J2405

== ENCOUNTER → 2022-12-25 | Outpatient (CLI) | payer OTHER, SELFPAY ==
[2022-12-25 16:30] LABS: CRP < 2.90 mg/L (0.0-3.0)
== END | disposition home or self-care (01) ==
LOC: MFPLAB 14:31
PROVIDERS: PCP Family Medicine; Referring Provider Family Medicine; Visit Provider Family Medicine
DX: R79.82 Elevated C-reactive protein (CRP) (principal)
CPT/HCPCS: 36415; 86140

== ENCOUNTER 2023-04-25 14:48 | Emergency (ER) | payer OTHER, SELFPAY ==
[2023-04-25 14:49] VITALS: BP 135/86; PULSE 84; RESP 16; TEMP 36.1; O2SAT 97; BMI 30.2
--- NOTE | 2023-04-25 15:19 | US_ITS ---
EXAM: US SCROTUM CLINICAL INDICATION: left sided pain TECHNIQUE: Realtime ultrasound of the testicles was performed with grayscale and Color Doppler analysis. COMPARISON: No relevant prior studies available. FINDINGS: RIGHT TESTICLE: Right testicle measures 4.4 x 2.0 x 2.7 cm. There is a small 4 mm extratesticular calcification on the right compatible with a scrotolith. Normal blood flow is present. LEFT TESTICLE: The left testicle measures 4.7 x 1.9 x 2.6 cm. Normal in size and echotexture. No focal lesion. Normal blood flow is present. EPIDIDYMIDES: The right epididymal head measures 8 x 9 mm. There is a 4 x 7 mm anechoic structure in the right epididymal head compatible epididymal cyst. The left epididymal head measures 8 x 9 mm with a 4 x 4 mm left renal cyst. Normal color Doppler flow pattern in the epididymis. SCROTUM: Scrotum measures 3 mm. There is a small hydrocele. The left scrotum measures 3. US/Testicular with Arterial Flow IMPRESSION: Small epididymal cysts bilaterally. No other acute abnormalities. There is no evidence of torsion. Electronically Signed: Amyea Zhao MD at 16:27 EDT ,
--- NOTE | 2023-04-25 15:22 | EX.ED.GUMALE ---
HPI History of Present Illness Chief Complaint: Male Pain/Injury Informant: patient Narrative Narrative: Patient presents with intermittent left testicular pain. He states this started this morning. He just gets sharp pain in the left testicle. It is brief. Then it goes away. In between the episodes he has no pain or discomfort whatsoever. He has no discharge or urinary symptoms. He has no swelling or change in position. No back pain flank pain or abdominal pain. No history of kidney stones. No fevers or chills. He has not had a vasectomy. His is due with her second child in just a few weeks and he is considering future vasectomy. He is totally asymptomatic now. [facility] Medical History Acute appendicitis Anxiety Heart murmur of Home Medications NK 04/25/23 [History Last Taken Unknown] Allergy/AdvReac Type Severity Reaction Status Date / Time No Known Allergies Allergy Verified 04/25/23 14:50 Social History Smoking Status: Former smoker ROS ROS ED ROS Narrative A complete review of systems was performed and is negative except as documented in the history of present illness. Some specific details below. Constitutional: No recent fevers or chills. No malaise. He feels totally fine other than his intermittent left testicular symptoms. EYE: No visual complaints. No itching or burning or discharge. CV: No chest pain or palpitations. Respiratory: No dyspnea. No hemoptysis. No difficulty taking breaths. GI: No abdominal pain. No suprapubic flank or back pain. No nausea vomiting even with the pain. : See history of present illness. No change in urination color or odor. No dysuria. Nothing really brings this on or makes it go away. Musculoskeletal: No recent trauma. No pains. No radicular symptoms. Skin: No rash. Nondiaphoretic. Neuro: No weakness or numbness. Endocrine: No polyuria or polydipsia. EXAM Physical Exam Narrative Exam Narrative: Patient is awake alert no acute distress. HEENT shows no sign of trauma. Mucous membranes moist. Eyes show no injection or discharge or irritation. Lungs are clear bilaterally with normal saturations at 97% on room air. Heart is regular. No murmur. Normal pulses x4. Abdomen is soft normal bowel sounds nondistended and completely nontender including no suprapubic fullness or tenderness. Back shows no CVA tenderness. No rashes. Genitourinary: No inguinal pain tenderness. No hernia including with standing and a cough. He has no testicular tenderness. No fullness or enlargement. No abnormal lie or position. Cremasteric reflex is intact. There is no discharge. No rashes. Extremities show no swelling. He has a few varicosities but these are chronic and unchanged. Const Vital Signs: 04/25/23 14:49 Temperature 96.9 F L Temperature Source Temporal Pulse Rate 84 Respiratory Rate 16 Blood Pressure 135/86 H Blood Pressure Mean 102 Pulse Ox 97 Oxygen Delivery Method Room Air MDM MDM MDM Narrative Medical decision making narrative: Patient's urinalysis is normal. Patient's ultrasound of the testicle showed no sign of torsion or other acute process. I went back check the patient. He is asymptomatic. I told him I do not have a specific cause for his symptoms. There is no sign of torsion mass hernia infection. We discussed reasons to return that would include return of pain, continuing pain, worsening pain, fevers nausea vomiting change in bowel habits, urinary symptoms or any other concerns. Lab Data Labs: Laboratory Results - last 24 hr 04/25/23 15:35 Urine Color Straw Urine Clarity Clear Urine pH 6.0 Ur Specific Lapel 1.005 Urine Protein Negative Urine Glucose (UA) Normal Urine Ketones Negative Urine Occult Blood Negative Urine Nitrite Negative Urine Bilirubin Negative Urine Urobilinogen Normal Ur Leukocyte Esterase Negative Urine RBC 0 SEEN Urine WBC 0 SEEN Ur Squamous Epith Cells 0 SEEN Urine Bacteria 0 SEEN Urine Mucus 0 SEEN Radiography Diagnostic Testing: Clinical Impression(s) from Imaging Studies Testicular Ultrasound 04/25/23 15:19 IMPRESSION: Small epididymal cysts bilaterally. No other acute abnormalities. There is no evidence of torsion. Electronically Signed: Ameya Zhao MD at 16:27 EDT , Discharge Plan Triage Chief Complaint: Male Pain/Injury ED Provider: Emerson Stone Dx/Rx/DC Orders Clinical Impression: Left testicular pain Instructions: ED Testicular Pain, Unclear Cause Prescriptions: No Action NK Primary Care Provider: Karan Villarreal Referrals: Karan Villarreal MD [Primary Care Provider] - Faustino Swain MD [Med Staff - Active Staff] - 3-5 Days if not improving Disposition Disposition: Home, Self Care
[2023-04-25 15:43] LABS: Bacteria 0 SEEN /hpf (None Seen); Mucous, Urine 0 SEEN /hpf (<or=2+); Red Blood Cells-Urine 0 SEEN /hpf (0-5); Squamous Epithelial Cells - UA 0 SEEN /hpf (0-5); White Blood Cells 0 SEEN /hpf (0-5)
[2023-04-25 15:49] LABS: Color, Urine Straw (Yellow); Glucose, Dipstick Normal (Normal); Ketone-Dipstick Negative (Negative); Leukocyte Esterase-Dipstick Negative /ul (Negative); Nitrite-Dipstick Negative (Negative); Occult Blood-Urine Negative /ul (Negative); Protein-Dipstick Negative (Negative); Specific Gravity, Urine 1.005 (1.002-1.030); Urine Bilirubin Dipstick Negative (Negative); Urine Clarity Clear (Clear); Urine Urobilinogen Normal (Normal)
== END 2023-04-25 17:04 | disposition home or self-care (01) ==
PROVIDERS: Emergency Provider Emergency Medicine; PCP Family Medicine; Visit Provider Emergency Medicine
DX: N50.812 Left testicular pain (principal); Z87.891 Personal history of nicotine dependence
CPT/HCPCS: 76870; 81001; 93976; 99282

== ENCOUNTER 2023-04-28 10:53 | Inpatient (IN) | payer OTHER, SELFPAY ==
[2023-04-28] VITALS (7 sets, daily range): BP systolic 105–214; BP diastolic 57–163; PULSE 58–71; RESP 16–20; TEMP 36.6–37.5; O2SAT 98–100; BMI 29.4; BMI 29.8
--- NOTE | 2023-04-28 11:11 | CT_ITS ---
We are attempting to reach an attending provider to discuss findings. An addendum with communication details will be sent when the communication is complete. EXAM: CT ABDOMEN AND PELVIS WITH INTRAVENOUS CONTRAST CLINICAL INDICATION: LLQ pain TECHNIQUE: Helically acquired images were obtained of the abdomen and pelvis with intravenous contrast. This CT exam was performed using one or more of the following dose reduction techniques: automated exposure control, adjustment of the mA and/or kV according to patient size, and/or use of iterative reconstruction technique. CONTRAST: IV 100mL [id number] COMPARISON: CT Abdomen Pelvis dated 12/02/2022 FINDINGS: LOWER THORAX: Normal. Lung bases are clear. No cardiomegaly. No pericardial effusion. ABDOMEN: LIVER: Normal. Homogeneous. No focal mass. PANCREAS: Normal. No focal cystic or solid mass. SPLEEN: Normal. Normal size without focal cystic or solid mass. ADRENALS: Normal. No nodules. KIDNEYS AND URETERS: Normal. Normal renal size and position. No hydronephrosis. STOMACH AND BOWEL: Mild diffuse thickening of the large bowel and rectum and terminal ileum which may represent chronic ileocolitis. PELVIS: APPENDIX: Distal aspect of the appendix again noted to be enlarged measuring 10 mm in maximum diameter. There is adjacent mild fat stranding. These findings are consistent with either early acute or chronic appendicitis. BLADDER: Normal. REPRODUCTIVE: Unremarkable as visualized. No mass. ABDOMEN and PELVIS: INTRAPERITONEAL SPACE: Normal. No ascites or other fluid collection. No free air. BONES/JOINTS: No suspicious lytic or blastic abnormality. SOFT TISSUES: Small fat-containing umbilical hernia is present. VASCULATURE: Normal. Abdominal aorta is non-dilated. LYMPH NODES: Normal. No enlarged lymph nodes. CT/Abdomen/Pelvis W IV Cont ONLY IMPRESSION: 1. Enlarged appendix associated with mild adjacent fat stranding which may represent early acute or chronic appendicitis. 2. Question of chronic ileocolitis. Electronically Signed: Alejandro Ross MD at 14:15 EDT ,
--- NOTE | 2023-04-28 11:12 | ED.VIS.GI ---
HPI HPI - GI History of Present Illness Chief Complaint: Abd Pain Narrative Narrative: [id number] male who denies significant past medical history is epigastric to left lower quadrant pain that he has had for the last 90 minutes. He relates history that he was seen in the emergency department on Thursday, 4 days ago for testicular pain. He states ultrasound was negative and that his testicular pain resolved. He presents with sharp, stabbing abdominal pain over the last 90 minutes. He states it is associated with nausea and a little vomiting that he experienced on the way here. No exacerbating or alleviating factors. No prior abdominal surgeries. He denies any dysuria or hematuria. No problems with bowel movements as he states he thought his pain may have been secondary to constipation, but he had 2 normal bowel movements today. He presents because of the abdominal pain that is is experiencing which is different from his left testicular pain that he was having. [facility] Medical History Acute appendicitis Anxiety Heart murmur of Home Medications NK 04/28/23 [History Last Taken Unknown] Allergy/AdvReac Type Severity Reaction Status Date / Time No Known Allergies Allergy Verified 04/28/23 10:57 Social History Smoking Status: Former smoker ROS ROS ED ROS Narrative Constitutional: No fever, no chills. HEENT: No sore throat. No neck pain. No loss of vision. No rhinorrhea. Cardiovascular: No chest pain. No palpitations. No pedal edema. Respiratory: No cough, no shortness of breath. Abdominal: Positive epigastric to left lower quadrant abdominal pain. Positive nausea and vomiting in route to ED. No reji hematemesis. Genitourinary: No dysuria. No hematuria. No testicular pain currently. Musculoskeletal: No myalgias. No arthralgias. Neurologic: No headaches. No dizziness. No lightheadedness. Skin: No rash. No change in color. Psychiatric: No depression. No anxiety. EXAM Physical Exam Narrative Exam Narrative: Afebrile. Vital signs noted. HEENT: Normocephalic. Atraumatic. PERRL, EOMI. Neck soft and supple. No point tenderness or step off. Cardiovascular: Regular rate and rhythm. No murmurs, rubs, or gallops appreciated. Respiratory: No tachypnea. Lungs clear to auscultation bilaterally. Gastrointestinal: Abdomen soft, mild tenderness epigastrium to left lower quadrant with normoactive bowel sounds. No rebound or guarding. Neurological: Awake. Alert. Nonfocal, nonlateralizing. Skin: No rash. Normal color. No pallor. Musculoskeletal: No pedal edema. Full range of motion extremities. Const Vital Signs: 04/28/23 10:54 04/28/23 11:03 04/28/23 13:26 Temperature 97.8 F Temperature Source Temporal Pulse Rate 60 58 L 71 Respiratory Rate 18 18 17 Blood Pressure 214/163 H 118/72 126/68 H Blood Pressure Mean 180 87 87 Pulse Ox 100 100 100 Oxygen Delivery Method Room Air Room Air Room Air MDM MDM MDM Narrative Medical decision making narrative: In the differential diagnosis would be pancreatitis versus diverticulitis versus bowel obstruction, but states he really has not had any prior abdominal surgeries that would cause it. He recently was worked up for testicular torsion, but he is not having any testicular pain currently. Comprehensive work-up was pursued. I do feel CT imaging and laboratory work is indicated for his acute problem. He was administered morphine and ondansetron along with a bolus of normal saline 1 L intravenously. I reviewed the patient's prior records, and I had seen him previously for right lower quadrant abdominal pain. He was admitted at that time, and seen by gastroenterology as there was question on whether or not he had inflammatory bowel disease. He did have colonoscopy performed. According to the GI notes, it was not suspected that he had any type of autoimmune disorder of his bowels, and his inflammation of the terminal ileum and cecum improved after 2 weeks of antibiotics. I reviewed his CBC and he has normal white count of 9.2, hemoglobin slightly hemoconcentrated at 17.6 with hematocrit 49.6, platelet count normal at 165. Review of his CMP is grossly normal with a normal sodium of 142, potassium 3.8, chloride 106, and BUN of 15 with creatinine of 1.15. Glucose is appropriately elevated at 115 and he has a normal anion gap of 9. Lipase is normal at 28 so I have low suspicion for pancreatitis. CT of the abdomen and pelvis was obtained and reviewed. I received a call from the radiologist regarding the CT report. He does have an enlarged appendix with surrounding fat stranding which may represent acute versus chronic appendicitis. There is also question of chronic ileocolitis. Patient did require an additional dose of morphine and now states that his pain is down to a 2. Given that he has acute versus chronic appendicitis, while his abdomen remains soft, I discussed patient with Dr. Prater with general surgery for evaluation. This is to ensure that he would not require surgical intervention for an appendicitis. Antibiotics were deferred initially until after surgical consultation. Based on the patient's continued pain, I do feel that he will require at least observation with possible reconsultation to gastroenterology, Dr. Land, who is seen in the past. In discussion with Dr. Prater, he would like Cipro and Flagyl started, and the patient admitted medically with gastroenterology consult. Plan would be to take out his appendix later for definitive pathology but it was not felt by general surgery that he required emergent transfer to the operating room. Patient was discussed with Dr. De La Cruz. Disposition admit in stable condition. History & Record Review Discussion w/independent historian: Patient Additional record(s) reviewed:: Prior inpatient record, Prior outpatient record, Prior ED visit and Prior labs Lab Data Attestation: I reviewed the patient's lab results. Labs: Laboratory Results - last 24 hr 04/28/23 04/28/23 11:45 12:47 WBC 9.2 RBC 5.19 Hgb 17.6 H Hct 49.6 MCV 95.6 H MCH 33.9 H MCHC 35.5 RDW Std Deviation 40.7 RDW Coeff of Erin 11.7 Plt Count 165 MPV 11.2 Immature Gran % (Auto) 0.300 Neut % (Auto) 70.8 H Lymph % (Auto) 14.0 L [place] % (Auto) 6.7 Eos % (Auto) 7.4 H Baso % (Auto) 0.8 Absolute Neuts (auto) 6.5 Absolute Lymphs (auto) 1.29 Nucleated RBC % 0 Sodium 142 Potassium 3.8 Chloride 106 Carbon Dioxide 27.0 Anion Gap 9 BUN 15 Creatinine 1.15 Estim Creat Clear Calc 98.41 Est GFR (MDRD) Af Amer 93 Est GFR (MDRD) Non-Af 77 BUN/Creatinine Ratio 13.0 Glucose 115 H Calcium 9.1 Total Bilirubin 1.30 H AST 21 ALT 30 Alkaline Phosphatase 80 Total Protein 7.4 Albumin 4.1 Globulin 3.3 Albumin/Globulin Ratio 1.2 Lipase 28 Urine Color Yellow Urine Clarity Clear Urine pH 7.0 Ur Specific [place] 1.010 Urine Protein 15 H Urine Glucose (UA) Normal Urine Ketones Negative Urine Occult Blood Negative Urine Nitrite Negative Urine Bilirubin Negative Urine Urobilinogen Normal Ur Leukocyte Esterase 25 H Urine RBC 0 SEEN Urine WBC 0 SEEN Ur Squamous Epith Cells 0 SEEN Urine Bacteria 0 SEEN Urine Mucus 0 SEEN Radiography Diagnostic Testing: Clinical Impression(s) from Imaging Studies Abdomen/Pelvis CT 04/28/23 11:11 IMPRESSION: 1. Enlarged appendix associated with mild adjacent fat stranding which may represent early acute or chronic appendicitis. 2. Question of chronic ileocolitis. Electronically Signed: Alejandro Ross MD at 14:15 EDT , ADDENDUM: 04/28/23 1433 IMPRESSION: 1. Enlarged appendix associated with mild adjacent fat stranding which may represent early acute or chronic appendicitis. 2. Question of chronic ileocolitis. N.B. : The above Results were Read Back by Alejandro Ross MD to Bassem Richardson MD, and understanding confirmed on 04/28/2023 14:26:20 (ET). Electronically Signed: Alejandro Ross MD at 14:15 EDT , Management Discussion w/another healthcare provider: Hospitalist (Dr. De La Cruz) and Payroll Coordinator (Dr. Nikos Prater, general surgery) Discharge Plan Dx/Rx/DC Orders Clinical Impression: Ileocolitis, Abdominal pain, Chronic appendicitis Disposition Disposition: Acute Care Hospital [facility]
[2023-04-28] MEDS: Morphine 4 MG/ML Syringe IV ×3 (11:35→16:00)
[2023-04-28] MEDS: Ondansetron 4 MG/2 ML Vial IV (11:35)
[2023-04-28] MEDS: 0.9% Normal Saline 1,000 ML 1000 ML IV (11:40)
[2023-04-28 12:05] LABS: Absolute Lymphocyte Count 1.29 X10^3/uL (0.83-4.51); Absolute Neutrophil Count 6.5 X10^3/uL (2.0-7.7); Basophil# 0.07 X10^3/uL; Basophil% 0.8 % (0-1); Eosinophil# 0.68 X10^3/uL; Eosinophils% 7.4 % (0-5); Hematocrit 49.6 % (40-54); Hemoglobin 17.6 g/dL (13.0-16.5); Lymphocyte # 1.29 X10^3/ul (0.83-4.51); Mean Corp Hgb Conc 35.5 g/dL (32-36); Mean Corpuscular Hgb 33.9 pg (27.0-32.0); Mean Corpuscular Volume 95.6 fL (80-94); Mean Platelet Vol. 11.2 fl (6.2-12.0); Monocyte# 0.62 X10^3/uL; Monocyte% 6.7 % (0-10); NRBC Flagged by Analyzer 0 % (0-5); Neutrophil # 6.54 X10^3/uL (2.7-7.7); Neutrophil % 70.8 % (47-70); Platelet Count 165 K/mm3 (150-450); RBC Distribution Width CV 11.7 % (11.6-14.6); RBC Distribution Width SD 40.7 fl (35.1-43.9); Red Blood Count 5.19 M/mm3 (4.6-6.2); White Blood Count 9.2 K/mm3 (4.4-11.0)
[2023-04-28 12:27] LABS: ALB/GLOB Ratio 1.2 RATIO (0.9-2.4); AST(SGOT) 21 U/L (15-37); Alanine Aminotransfer ALT/SGPT 30 U/L (16-61); Albumin, Serum 4.1 g/dL (3.2-5.0); Alkaline Phosphatase 80 U/L (45-117); Anion Gap 9 (5-15); BUN 15 mg/dL (7-18); Calcium,Total 9.1 mg/dL (8.5-10.1); Chloride 106 mmol/L (98-107); Creatinine, Serum 1.15 mg/dL (0.70-1.30); EST Glomerular Filtration Rate 77 mL/min (>60); Est Glom Filt Rate - Afr Amer 93 mL/min (>60); Estimated Creatinine Clearance 98.41 ml/min; Globulin 3.3 g/dL (2.2-4.2); Glucose 115 mg/dL (74-106); Lipase 28 U/L (13-75); Potassium 3.8 mmol/L (3.5-5.1); Protein, Total 7.4 g/dL (6.4-8.2); Sodium Level 142 mmol/L (136-145)
[2023-04-28 12:55] LABS: Bacteria 0 SEEN /hpf (None Seen); Mucous, Urine 0 SEEN /hpf (<or=2+); Red Blood Cells-Urine 0 SEEN /hpf (0-5); Squamous Epithelial Cells - UA 0 SEEN /hpf (0-5); White Blood Cells 0 SEEN /hpf (0-5)
[2023-04-28 13:07] LABS: Color, Urine Yellow (Yellow); Glucose, Dipstick Normal (Normal); Ketone-Dipstick Negative (Negative); Leukocyte Esterase-Dipstick 25 /ul (Negative); Nitrite-Dipstick Negative (Negative); Occult Blood-Urine Negative /ul (Negative); Protein-Dipstick 15 mg/dl (Negative); Urine Bilirubin Dipstick Negative (Negative); Urine Clarity Clear (Clear); Urine Urobilinogen Normal (Normal)
--- NOTE | 2023-04-28 15:44 | NURSING ---
MED SURG JOVANNI ILEOCOLITIS, CHRONIC APPENDICITIS
--- NOTE | 2023-04-28 15:55 | CON.PCM.SX_ITS ---
Assessment & Plan Assessment/Plan (1) Ileocolitis: PLAN: This is a 33-year-old male, otherwise healthy, who presents for acute onset abdominal discomfort and associated nausea. He describes the abdominal pain as centered above his umbilicus and may be slightly to the right. He initially was so uncomfortable he was not able to eat, but states that he is now very hungry. His work-up in the ER was remarkable for CBC without leukocytosis and CT imaging of the abdomen pelvis that showed rather diffuse inflammation of the ileum and right colon. Within this inflammatory change, radiology identified a dilated appendix at 10 mm?also with some inflammatory change. With my exam, I do not have any clinical suspicion for appendicitis given that patient is completely nontender over McBurney's point. Further, patient had a prior similar episode in November of this year. At that time as well he was evaluated for possible acute appendicitis, but surgery was felt to be risky given the surrounding inflammation of the bowel. Instead patient was admitted to the hospitalist service and underwent evaluation by gastroenterology. This i ncluded colonoscopy and intubation of the terminal ileum. Biopsies were obtained during this investigation, but ultimately concluded no pathologic change. Mr. Sanchez reports that he underwent significant genetic testing and was told this was negative and that there was no way he could have Crohn's. At this juncture, I believe patient has recurrent enterocolitis, but the etiology is unclear. I believe the appendix appears inflamed?secondary to the inflammatory changes to the bowel around it. Patient had success with antibiotics?alone treatment previously and I question whether or not we may trial similar treatments, but then plan to perform an interval appendectomy following recuperation. Given that this is his second episode, I do believe patient merits further work-up and observation. Recommend hospitalist evaluation and possible reconsultation of gastroenterology. Would also recommend obtaining stool study specimens prior to initiating antibiotics and performing a diet trial. We will continue to follow. HPI Consult Data Date of Consult: 04/28/23 HPI Narrative Reason for Consultation: Rule out acute appendicitis HPI Narrative: MARY SANCHEZ, is a 33 M who presents to [facility] with complaints of acute onset abdominal discomfort and associated nausea beginning approximately 930 this morning. Patient states that he initially thought that he was constipated, but after having 2 bowel movements the pain only intensified. He notes the pain was centralized right above his bellybutton. He reports that this is very similar to the discomfort with which he presented to the hospital in November of this year, however, he finds this discomfort to be worse. Because of this discomfort and sick associated nausea he has not had an appetite and has had only water today. He reports otherwise he has had no special changes to his diet, but admits that he does eat out frequently. He has no known sick contacts. In November of this year patient had both similar presentation as well as a similar work-up with CT imaging concerning for ileocolitis as well as a dilated appendix. General surgery evaluated the patient and determined that it was ill- advised to proceed with appendectomy given the concurrent inflammation of the surrounding bowel and recommended admission to the hospitalist service with GI consultation. Dr. Land evaluated patient and performed colonoscopy with intubation of the ileum. Biopsies were obtained and the patient then had outpatient follow-up with Dr. Land in January of this year. This work-up was all reportedly negative and inconsistent with a diagnosis of inflammatory bowel disease. Patient's familial history is inclusive of rheumatoid arthritis in his father as well as lots of autoimmune conditions in the family on this side. He reports that his maternal uncle, who is now , had a diagnosis of Crohn's colitis. Patient's current ER work-up is remarkable for a CBC without leukocytosis but there is mild neutrophilia. CT imaging, once again, demonstrates evidence of possible chronic ileocolitis with the inflammation of the appendix?this time measuring up to 10 mm in diameter. [facility] Medical History (Updated 04/28/23 @ 17:01 by Luana Conti) Acute appendicitis Anxiety Depression Former smoker Heart murmur of Home Medications NK 04/28/23 [History Last Taken Unknown] Allergy/AdvReac Type Severity Reaction Status Date / Time No Known Allergies Allergy Verified 04/28/23 16:18 Social History Smoking Status: Former smoker Physical Exam Const alert, oriented x3 and no apparent distress Constitutional Narrative: Patient repeatedly states that he is hungry General Appearance: cooperative Nutritional Appearance: overweight Resp normal respiratory effort GI GI Narrative: hirsuit, no scars, strawberry hemangiomas present superficially, nondistended, soft, generally nontender to palpation. No tenderness, specifically, over McBurney's point. Generally negative psoas and obturator signs (patient states that he feels some discomfort but no pain and rates this at a 2 out of 10) Lab / Micro Data 04/28/23 11:45 04/28/23 11:45 Labs: Laboratory Results - last 24 hr 04/28/23 11:45: WBC 9.2, RBC 5.19, Hgb 17.6 H, Hct 49.6, MCV 95.6 H, MCH 33.9 H, MCHC 35.5, RDW Std Deviation 40.7, RDW Coeff of Erin 11.7, Plt Count 165, MPV 11.2, Immature Gran % (Auto) 0.300, Neut % (Auto) 70.8 H, Lymph % (Auto) 14.0 L, [place] % (Auto) 6.7, Eos % (Auto) 7.4 H, Baso % (Auto) 0.8, Absolute Neuts (auto) 6.5, Absolute Lymphs (auto) 1.29, Nucleated RBC % 0, Sodium 142, Potassium 3.8, Chloride 106, Carbon Dioxide 27.0, Anion Gap 9, BUN 15, Creatinine 1.15, Estim Creat Clear Calc 98.41, Est GFR (MDRD) Af Amer 93, Est GFR (MDRD) Non-Af 77, BUN/Creatinine Ratio 13.0, Glucose 115 H, Calcium 9.1, Total Bilirubin 1.30 H, AST 21, ALT 30, Alkaline Phosphatase 80, Total Protein 7.4, Albumin 4.1, Globulin 3.3, Albumin/Globulin Ratio 1.2, Lipase 28 04/28/23 12:47: Urine Color Yellow, Urine Clarity Clear, Urine pH 7.0, Ur Specific [place] 1.010, Urine Protein 15 H, Urine Glucose (UA) Normal, Urine Ketones Negative, Urine Occult Blood Negative, Urine Nitrite Negative, Urine Bilirubin Negative, Urine Urobilinogen Normal, Ur Leukocyte Esterase 25 H, Urine RBC 0 SEEN, Urine WBC 0 SEEN, Ur Squamous Epith Cells 0 SEEN, Urine Bacteria 0 SEEN, Urine Mucus 0 SEEN Radiology Impression Abdomen/Pelvis CT 04/28/23 11:11 IMPRESSION: 1. Enlarged appendix associated with mild adjacent fat stranding which may represent early acute or chronic appendicitis. 2. Question of chronic ileocolitis. Electronically Signed: Alejandro Ross MD at 14:15 EDT Reading Location ID and State: [facility] / [place] Tel , Service support , ADDENDUM: 04/28/23 1433 IMPRESSION: 1. Enlarged appendix associated with mild adjacent fat stranding which may represent early acute or chronic appendicitis. 2. Question of chronic ileocolitis. N.B. : The above Results were Read Back by Alejandro Ross MD to Bassem Richardson MD, and understanding confirmed on 04/28/2023 14:26:20 (ET). Electronically Signed: Alejandro Ross MD at 14:15 EDT , Charges/Coding Visit Charges Inpatient E&M: 02057 Init Hosp L2
--- NOTE | 2023-04-28 16:05 | ED.RN ---
FLAGYL AND CIPRO STOPPED PER DR BORDEN AND DR BAIG REQUEST. FLUIDS INITIATED
--- NOTE | 2023-04-28 16:12 | PCM.HP.STD ---
HPI - General General Date of Admission: 04/28/23 Date of Service: 04/28/23 Chief Complaint: Abdominal pain for about 1 and half hours prior to ED arrival HPI Narrative MARY SANCHEZ, is a 33 M came to ED for right-sided abdominal pain for about 90 minutes prior to ED arrival. Prior to that patient came to ER 4 days ago for testicular pain and at that time Ultrasound was negative for testicular torsion therefore was discharged. Today he complains of abdominal pain mainly in epigastric and right lower quadrant but he has mild diffuse abdominal pain. He stated this pain did not go even 3 doses of morphine 4 mg but during last admission November 2022 his pain was resolved after 2 doses of morphine. He describes his pain 8-9/10 intensity, constant, deep inside instigating onset. He also felt nauseous and spitting out clear saliva but no real vomiting. He had 2 bowel movements today first 1 was normal second was semisolid to liquid but no blood, brown or black stool. Denies fever. In ED, his blood pressure first was 240/160 probably erroneous, second and third reading was normal 126/68. Vital signs in normal limit. No fever. CT abdomen pelvis was done in ED shows a large appendix is seen with mild adjacent fat stranding representing acute on chronic and question of ileocolitis. ED physician consulted Dr. Prater and he saw the patient in ED and he thinks it is not acute appendicitis and does not require acute surgical intervention. He further discussed with asthma educator detail mentioned in assessment plan. [facility] Medical History Acute appendicitis Anxiety Heart murmur of Home Medications NK 04/28/23 [History Last Taken Unknown] Allergy/AdvReac Type Severity Reaction Status Date / Time No Known Allergies Allergy Verified 04/28/23 16:18 Social History Smoking Status: Former smoker Vital Signs Vital Signs Vital Signs: 04/28/23 10:54 04/28/23 11:03 04/28/23 13:26 Temperature 97.8 F Temperature Source Temporal Pulse Rate 60 58 L 71 Respiratory Rate 18 18 17 Blood Pressure 214/163 H 118/72 126/68 H Blood Pressure Mean 180 87 87 Pulse Ox 100 100 100 Oxygen Delivery Method Room Air Room Air Room Air Weight Weight: 217 lb Body Mass Index (BMI) 29.4 Results Lab / Micro Data 04/28/23 11:45 04/28/23 11:45 Labs: Laboratory Results - last 24 hr 04/28/23 11:45: WBC 9.2, RBC 5.19, Hgb 17.6 H, Hct 49.6, MCV 95.6 H, MCH 33.9 H, MCHC 35.5, RDW Std Deviation 40.7, RDW Coeff of [place] 11.7, Plt Count 165, MPV 11.2, Immature Gran % (Auto) 0.300, Neut % (Auto) 70.8 H, Lymph % (Auto) 14.0 L, [place] % (Auto) 6.7, Eos % (Auto) 7.4 H, Baso % (Auto) 0.8, Absolute Neuts (auto) 6.5, Absolute Lymphs (auto) 1.29, Nucleated RBC % 0, Sodium 142, Potassium 3.8, Chloride 106, Carbon Dioxide 27.0, Anion Gap 9, BUN 15, Creatinine 1.15, Estim Creat Clear Calc 98.41, Est GFR (MDRD) Af Amer 93, Est GFR (MDRD) Non-Af 77, BUN/Creatinine Ratio 13.0, Glucose 115 H, Calcium 9.1, Total Bilirubin 1.30 H, AST 21, ALT 30, Alkaline Phosphatase 80, Total Protein 7.4, Albumin 4.1, Globulin 3.3, Albumin/Globulin Ratio 1.2, Lipase 28 04/28/23 12:47: Urine Color Yellow, Urine Clarity Clear, Urine pH 7.0, Ur Specific [place] 1.010, Urine Protein 15 H, Urine Glucose (UA) Normal, Urine Ketones Negative, Urine Occult Blood Negative, Urine Nitrite Negative, Urine Bilirubin Negative, Urine Urobilinogen Normal, Ur Leukocyte Esterase 25 H, Urine RBC 0 SEEN, Urine WBC 0 SEEN, Ur Squamous Epith Cells 0 SEEN, Urine Bacteria 0 SEEN, Urine Mucus 0 SEEN Radiology Impression Abdomen/Pelvis CT 04/28/23 11:11 IMPRESSION: 1. Enlarged appendix associated with mild adjacent fat stranding which may represent early acute or chronic appendicitis. 2. Question of chronic ileocolitis. Electronically Signed: Alejandro Ross MD at 14:15 EDT , ADDENDUM: 04/28/23 1433 IMPRESSION: 1. Enlarged appendix associated with mild adjacent fat stranding which may represent early acute or chronic appendicitis. 2. Question of chronic ileocolitis. N.B. : The above Results were Read Back by Alejandro Ross MD to Bassem Richardson MD, and understanding confirmed on 04/28/2023 14:26:20 (ET). Electronically Signed: Alejandro Ross MD at 14:15 EDT , Assessment & Plan Assessment/Plan (1) Abdominal pain: (2) Ileocolitis: PLAN: Plan 1. Acute on recurrent abdominal pain, exact etiology unclear: Patient is being admitted on [facility] floor. CT abdomen and with IV contrast individually reviewed. It shows mild diffuse thickening of large bowel and rectum and terminal ileum maintained chronic ileocolitis. Distal aspect of appendix large 10 mm in maximum diameter with mild fat stranding. Therefore clinical suspicion of acute on chronic colitis possible infectious colitis. Discussed with surgeon Dr. Nikos Prater and he recommended to hold on IV antibiotics and will force to stool studies including enteric bacteriology panel, stool for Giardia EIA, ova and parasites. Very low suspicion for C. difficile. Patient does not have leukocytosis. UA is benign with LE 25 nitrite negative. hCG normal. 2. Dehydration with hemoconcentration: Hemoglobin is 17.6 probably due to hemoconcentration. IV fluid Ringer lactate ordered. Patient had IV fluid normal saline in the ED. Electrolytes in the normal range. Serum magnesium and phosphorus ordered. 3. History of right-sided abdominal pain, admission in November 2022. At that time CT abdomen shows noncomplicated appendicitis and circumferential thickening of terminal ileum therefore colonoscopy was done. Colonoscopy showed terminal portion of ileum normal biopsies and inflammatory colitis ruled out. Patient also large lipoma dispelling Flexi-melt congested mucosa at hepatic flexure and ascending colon and cecum. Patient saw Dr. Land has follow-up in November 2022 and had CRP which was normal. He completed [employer] for 2 weeks. His work-up for Crohn's disease involves a [facility] SGI diagnosticAnalysis. ANCA antibody were normal. Also he had an DREW comprehensive profile which were also normal for autoimmune disease therefore autoimmune disease was of tge least concern. DVT prophylaxis low risk early ambulation encouraged. CODE STATUS: Patient does not have living will or advanced directive. His is at the bedside. Full code verified. Laboratory Results 04/28/23 11:45: WBC 9.2, RBC 5.19, Hgb 17.6 H, Hct 49.6, MCV 95.6 H, MCH 33.9 H, MCHC 35.5, RDW Std Deviation 40.7, RDW Coeff of [place] 11.7, Plt Count 165, MPV 11.2, Immature Gran % (Auto) 0.300, Neut % (Auto) 70.8 H, Lymph % (Auto) 14.0 L, [place] % (Auto) 6.7, Eos % (Auto) 7.4 H, Baso % (Auto) 0.8, Absolute Neuts (auto) 6.5, Absolute Lymphs (auto) 1.29, Nucleated RBC % 0, Sodium 142, Potassium 3.8, Chloride 106, Carbon Dioxide 27.0, Anion Gap 9, BUN 15, Creatinine 1.15, Estim Creat Clear Calc 98.41, Est GFR (MDRD) Af Amer 93, Est GFR (MDRD) Non-Af 77, BUN/Creatinine Ratio 13.0, Glucose 115 H, Calcium 9.1, Phosphorus Pending, Magnesium Pending, Total Bilirubin 1.30 H, AST 21, ALT 30, Alkaline Phosphatase 80, Total Protein 7.4, Albumin 4.1, Globulin 3.3, Albumin/Globulin Ratio 1.2, Lipase 28 04/28/23 12:47: Urine Color Yellow, Urine Clarity Clear, Urine pH 7.0, Ur Specific [place] 1.010, Urine Protein 15 H, Urine Glucose (UA) Normal, Urine Ketones Negative, Urine Occult Blood Negative, Urine Nitrite Negative, Urine Bilirubin Negative, Urine Urobilinogen Normal, Ur Leukocyte Esterase 25 H, Urine RBC 0 SEEN, Urine WBC 0 SEEN, Ur Squamous Epith Cells 0 SEEN, Urine Bacteria 0 SEEN, Urine Mucus 0 SEEN Clinical Impression(s) from Imaging Studies Abdomen/Pelvis CT 04/28/23 11:11 IMPRESSION: 1. Enlarged appendix associated with mild adjacent fat stranding which may represent early acute or chronic appendicitis. 2. Question of chronic ileocolitis. Charges/Coding Visit Charges Inpatient E&M: 41770 Init Hosp L3
[2023-04-28 16:26] LABS: Magnesium 2.3 mg/dL (1.6-2.6); Phosphorus 2.7 mg/dL (2.5-4.9)
[2023-04-28 17:44] LABS: GGTP 32 U/L (15-85)
[2023-04-28] MEDS: Lactated Ringers 1,000 ML 100 ML IV (18:11)
[2023-04-29 04:30] VITALS: BP 99/68; PULSE 83; RESP 16; TEMP 36.8; O2SAT 96
[2023-04-29] MEDS: Lactated Ringers 1,000 ML 100 ML IV (04:35)
[2023-04-29 06:22] LABS: Absolute Lymphocyte Count 1.11 X10^3/uL (0.83-4.51); Absolute Neutrophil Count 7.1 X10^3/uL (2.0-7.7); Basophil# 0.05 X10^3/uL; Basophil% 0.5 % (0-1); Eosinophil# 0.52 X10^3/uL; Eosinophils% 5.5 % (0-5); Hematocrit 48.6 % (40-54); Hemoglobin 16.7 g/dL (13.0-16.5); Lymphocyte # 1.11 X10^3/ul (0.83-4.51); Lymphocyte % 11.8 % (19-41); Mean Corp Hgb Conc 34.4 g/dL (32-36); Mean Corpuscular Hgb 33.1 pg (27.0-32.0); Mean Corpuscular Volume 96.4 fL (80-94); Mean Platelet Vol. 11.2 fl (6.2-12.0); Monocyte# 0.65 X10^3/uL; Monocyte% 6.9 % (0-10); NRBC Flagged by Analyzer 0 % (0-5); Neutrophil # 7.05 X10^3/uL (2.7-7.7); Neutrophil % 74.8 % (47-70); Platelet Count 162 K/mm3 (150-450); RBC Distribution Width CV 11.8 % (11.6-14.6); RBC Distribution Width SD 41.5 fl (35.1-43.9); Red Blood Count 5.04 M/mm3 (4.6-6.2); White Blood Count 9.4 K/mm3 (4.4-11.0)
[2023-04-29 06:46] LABS: Anion Gap 6 (5-15); BUN 8 mg/dL (7-18); BUN/Creat Ratio 8.5 RATIO (10-20); Calcium,Total 8.8 mg/dL (8.5-10.1); Chloride 108 mmol/L (98-107); Creatinine, Serum 0.95 mg/dL (0.70-1.30); EST Glomerular Filtration Rate 96 mL/min (>60); Est Glom Filt Rate - Afr Amer 117 mL/min (>60); Estimated Creatinine Clearance 119.12 ml/min; Glucose 98 mg/dL (74-106); Potassium 3.8 mmol/L (3.5-5.1); Sodium Level 141 mmol/L (136-145)
--- NOTE | 2023-04-29 07:34 | PN.SURG_ITS ---
Subjective Subjective Patient seen and examined during AM rounds. He is found resting peacefully in bed. He states that he had 3 cups of liquids last evening and tolerated these without any nausea. He expresses a appetite this morning. From abdominal standpoint, he does remark that he has more discomfort on his right side today. He denies any bowel function and is concerned that the morphine he received yesterday has compounded his concerns for constipation. Lastly he wishes to know whether he will be free to attend a soccer game in [place] this evening. Objective Data Objective Data Vital Signs: Vital Signs Temp Pulse Resp BP Pulse Ox O2 Del Method 98.3 F 83 16 99/68 96 Room Air 04/29/23 04:30 04/29/23 04:30 04/29/23 04:30 04/29/23 04:30 04/29/23 04:30 04/29/23 04:30 Oxygen Delivery Method Room Air Weight: 220 lb 3.869 oz Body Mass Index (BMI) 29.8 Intake & Output: Intake and Output for Last 24 Hours 04/27/23 04/28/23 04/29/23 23:59 23:59 23:59 Intake Total 1300 / 1300 1000 / 1000 Balance 1300 / 1300 1000 / 1000 Lab / Micro Data 04/29/23 05:51 04/29/23 05:51 Labs: Laboratory Results - last 24 hr 04/28/23 11:45: WBC 9.2, RBC 5.19, Hgb 17.6 H, Hct 49.6, MCV 95.6 H, MCH 33.9 H, MCHC 35.5, RDW Std Deviation 40.7, RDW Coeff of Erin 11.7, Plt Count 165, MPV 11.2, Immature Gran % (Auto) 0.300, Neut % (Auto) 70.8 H, Lymph % (Auto) 14.0 L, [place] % (Auto) 6.7, Eos % (Auto) 7.4 H, Baso % (Auto) 0.8, Absolute Neuts (auto) 6.5, Absolute Lymphs (auto) 1.29, Nucleated RBC % 0, Sodium 142, Potassium 3.8, Chloride 106, Carbon Dioxide 27.0, Anion Gap 9, BUN 15, Creatinine 1.15, Estim Creat Clear Calc 98.41, Est GFR (MDRD) Af Amer 93, Est GFR (MDRD) Non-Af 77, BUN/Creatinine Ratio 13.0, Glucose 115 H, Calcium 9.1, Phosphorus 2.7, Magnesium 2.3, Total Bilirubin 1.30 H, GGT 32, AST 21, ALT 30, Alkaline Phosphatase 80, Total Protein 7.4, Albumin 4.1, Globulin 3.3, Albumin/Globulin Ratio 1.2, Lipase 28 04/28/23 12:47: Urine Color Yellow, Urine Clarity Clear, Urine pH 7.0, Ur Specific [place] 1.010, Urine Protein 15 H, Urine Glucose (UA) Normal, Urine Ketones Negative, Urine Occult Blood Negative, Urine Nitrite Negative, Urine Bilirubin Negative, Urine Urobilinogen Normal, Ur Leukocyte Esterase 25 H, Urine RBC 0 SEEN, Urine WBC 0 SEEN, Ur Squamous Epith Cells 0 SEEN, Urine Bacteria 0 SEEN, Urine Mucus 0 SEEN 04/29/23 05:51: WBC 9.4, RBC 5.04, Hgb 16.7 H, Hct 48.6, MCV 96.4 H, MCH 33.1 H, MCHC 34.4, RDW Std Deviation 41.5, RDW Coeff of [place] 11.8, Plt Count 162, MPV 11.2, Immature Gran % (Auto) 0.500, Neut % (Auto) 74.8 H, Lymph % (Auto) 11.8 L, [place] % (Auto) 6.9, Eos % (Auto) 5.5 H, Baso % (Auto) 0.5, Absolute Neuts (auto) 7.1, Absolute Lymphs (auto) 1.11, Nucleated RBC % 0, Sodium 141, Potassium 3.8, Chloride 108 H, Carbon Dioxide 27.0, Anion Gap 6, BUN 8, Creatinine 0.95, Estim Creat Clear Calc 119.12, Est GFR (MDRD) Af Amer 117, Est GFR (MDRD) Non-Af 96, BUN/Creatinine Ratio 8.5 L, Glucose 98, Calcium 8.8 Radiography Diagnostic Testing: Radiology Impression Abdomen/Pelvis CT 04/28/23 11:11 IMPRESSION: 1. Enlarged appendix associated with mild adjacent fat stranding which may represent early acute or chronic appendicitis. 2. Question of chronic ileocolitis. Electronically Signed: Alejandro Ross MD at 14:15 EDT , ADDENDUM: 04/28/23 1433 IMPRESSION: 1. Enlarged appendix associated with mild adjacent fat stranding which may represent early acute or chronic appendicitis. 2. Question of chronic ileocolitis. N.B. : The above Results were Read Back by Alejandro Ross MD to Bassem Richardson MD, and understanding confirmed on 04/28/2023 14:26:20 (ET). Electronically Signed: Alejandro Ross MD at 14:15 EDT , Physical Exam Const oriented x3 and no apparent distress Resp normal respiratory effort GI GI Narrative: Nondistended, mild discomfort over McBurney's point with deep palpation?otherwise unremarkable. Specifically negative psoas and Rovsing signs Assessment & Plan Assessment/Plan (1) Ileocolitis: PLAN: This is a 33-year-old male, otherwise healthy, who presents for acute onset abdominal discomfort and associated nausea. He is admitted for management of recurrent ileocolitis and as part of his work-up did have recurrent observation of some appendiceal dilation and stranding. Based on his exam with minimal abdominal discomfort yesterday I felt his risk for appendicitis was quite low?this is especially owing to the consideration that this could be secondary inflammation from the inflammatory changes to the bowel on either side of this area. This morning patient has somewhat more localization to the right lower quadrant, but still I would expect his discomfort to be more significant if appendicitis were his primary problem and he is presently receiving antibiotics. Just as telling, patient requests discharge to home so that he can attend a soccer match in [place] this evening. I would like to still see if we can obtain a stool sample and then begin antibiotics. I anticipate the majority of his work-up will be conducted as an outpatient and would request follow-up with me in our outpatient clinic upon discharge. This plan has been discussed with patient's primary physician, Dr. Kidd. Charges/Coding Visit Charges Inpatient E&M: 42019 Subs Hosp L2
[2023-04-29 09:16] VITALS: BP 106/68; PULSE 79; RESP 18; TEMP 36.9; O2SAT 97
[2023-04-29] MEDS: Pantoprazole Sodium 40 MG Tablet PO (09:29)
[2023-04-29 09:55] VITALS: O2SAT 94
[2023-04-29] MEDS: Senna/Docusate Sodium 1 Tablet PO (11:18)
--- NOTE | 2023-04-29 12:22 | CASEMGMT ---
RN?CM?NURSING INSTRUCTOR?CM?to room to meet with patient for initial transition planning/care coordination?assessment.?RN?CM?introduced self and role at [facility].? Pt voices understanding and consents to?assessment?at this time.? Pt resting in bed in no distress at this time.? Pt is A/O at this time and answers all questions appropriately.?? Care providers, pharmacy, and demographics verified/updated at this time. PCP: Dr Villarreal Specialists: none Preferred Pharmacy: [facility] Insurance: [employer], MMO Prescription Benefit:?Yes Living Will/HPOA:?Has both LW and HCPOA, who is his , Gabby LNOK: , Gabby Living Arrangements: Live w/his and 23-month old child. Independent. Works full-time Transportation:?Pt states drives self and states no transportation concerns at this time.? also drives. DME: ? Denies using any DME and denies needs.? HHC/SNF: No hx of either. Has done OP therapy. Pt wishes to return home and states has no concerns with going home. Pt states he wishes to discharge today and wants to leave by 2:30 PM, stating he has plans this afternoon. Pt states if he is not discharged by then, that he will leave AMA. RN, Ericka, david and states will notify Dr Arredondo. PLAN:??Home. Bhargav MAJANON?RN?CM
[2023-04-29 13:48] VITALS: BP 116/85; PULSE 69; RESP 18; TEMP 36.6; O2SAT 100
--- NOTE | 2023-04-29 14:32 | DS.PCM_ITS ---
Providers Date of Admission: 04/28/23 Date of Discharge: 04/29/23 Primary Care Physician: Dr. Karan Villarreal MD Consultations 04/28/23 16:11 Consult: Gastroenterology Routine Consulting Provider: [facility] Reason for Consult: Acute on recurrent abd pain, colitis? EMERGENT Consult: No Notified: Yes Date Notified: 04/28/23 Time Notified: 16:11 Method of Notification: ED Physician Initiated Consult: General Surgery Routine Consulting Provider: Nikos Prater Reason for Consult: acute on recurrent colitis?, infectious? EMERGENT Consult: No Notified: Yes Date Notified: 04/28/23 Time Notified: 16:11 Method of Notification: ED Physician Initiated Reason For Visit: ACUTE ON CHR ILEOCOLITIS, APPENDICITIS Diagnosis Discharge Diagnosis (1) Ileocolitis: Status: Acute Code(s): K52.9 - Noninfective gastroenteritis and colitis, unspecified Medications at Discharge Home Medications NK 04/28/23 Hospital Course Operations None Procedures None Summary of Care Provided Minutes Spent on Discharge: 55 Hospital Course: Patient is a 33 y/o male with a PMH as outlined who was admitted via the ED on 04/29/2023 with a complaint of right sided abdominal pain which started about 90 mins prior to arrival in the ED. He had been seen in the ED 4 days prior with testicular pain, with ultrasound negative for testicular torsion. For this index admission, his abdominal pain was mainly epigastric and in the right lower quadrant, with mild diffuse abdominal pain. He had associated nausea, but without vomiting. CT of the abdomen showed a large appendix with a mild adjacent fat stranding, representing acute on chronic ileocolitis. General surgery was consulted, and general surgery didn't think it was acute appendicitis, and did not require acute surgical intervention. He had been previously seen in November 2022 for right sided abdominal pain, and CT abdomen then showed noncomplicated appendicitis and circumferential thickening of terminal ileum. Colonoscopy showed large lipoma at the splenic flexure, with congested mucosa at the hepatic flexure, ascending colon and cecum.He was discharged then on 10 days of P.O ciprofloxacin and metronidazole. He subsequently presented again this time with the abdominal pain as listed above. General surgery was consulted. General surgery recommended mild diffuse thickening of the large colon and rectum and terminal ileum which may represent ileocolitis. General surgery recommended holding off on IV antibiotics and to do stool studies, including enteric bacteriology, stool of Giardia EIA, ova and parasites. He was initially kept NPO, and later tolerated a liquid diet. He was given a stool softener to help him have a bowel movement. Gastroenterology was also consulted. Patient however signed out Against MEDICAL ADVICE as he wanted to go watch a soccer match in [place]. He therefore signed out AGAINST MEDICAL ADVICE on 04/29/2023. Patient was seen and examined on morning of day he left AMA. He had no active complaints. Abdominal pain had improved. Review of systems otherwise negative. Labs and vitals reviewed. Physical Exam Const General Appearance: cooperative, comfortable, well kempt and well developed HEENT normocephalic, head/scalp atraumatic, hearing grossly normal bilaterally and moist oral mucous membranes Mouth: oral and palatal mucosa normal Eyes PERRL, EOMs intact bilaterally and conjunctivae normal Neck no lymphadenopathy and supple Resp normal respiratory effort, no retractions, no use of accessory muscles and clear to auscultation bilaterally Cardio regular rate, regular rhythm, S1 normal heart sound, S2 normal heart sound, no m urmurs and no rub GI normal to inspection, nondistended, normoactive bowel sounds and soft to palpation GI Narrative: minimal right lower quadrant tenderness, no guarding or rebound tenderness Extremity normal to inspection, full ROM and no clubbing, cyanosis or edema Skin no rashes or lesions noted Neuro oriented x3, CN's II-XII intact bilaterally and moves all extremities Sensorium / Orientation: awake and alert Motor Exam: strength 5/5 throughout Psych affect normal Weight / BMI Weight Weight: 220 lb 3.869 oz Body Mass Index (BMI) 29.8 ABG / Lab / Microbiology Data 04/29/23 05:51 04/29/23 05:51 Laboratory: Laboratory Results - last 24 hr 04/28/23 11:45: Phosphorus 2.7, Magnesium 2.3, GGT 32 04/29/23 05:51: WBC 9.4, RBC 5.04, Hgb 16.7 H, Hct 48.6, MCV 96.4 H, MCH 33.1 H, MCHC 34.4, RDW Std Deviation 41.5, RDW Coeff of [place] 11.8, Plt Count 162, MPV 11.2, Immature Gran % (Auto) 0.500, Neut % (Auto) 74.8 H, Lymph % (Auto) 11.8 L, [place] % (Auto) 6.9, Eos % (Auto) 5.5 H, Baso % (Auto) 0.5, Absolute Neuts (auto) 7.1, Absolute Lymphs (auto) 1.11, Nucleated RBC % 0, Sodium 141, Potassium 3.8, Chloride 108 H, Carbon Dioxide 27.0, Anion Gap 6, BUN 8, Creatinine 0.95, Estim Creat Clear Calc 119.12, Est GFR (MDRD) Af Amer 117, Est GFR (MDRD) Non-Af 96, BUN/Creatinine Ratio 8.5 L, Glucose 98, Calcium 8.8 Radiography Diagnostic Testing: Radiology Impression Abdomen/Pelvis CT 04/28/23 11:11 IMPRESSION: 1. Enlarged appendix associated with mild adjacent fat stranding which may represent early acute or chronic appendicitis. 2. Question of chronic ileocolitis. Electronically Signed: Alejandro Ross MD at 14:15 EDT Reading Location ID and State: [facility] / [place] Tel , Service support , ADDENDUM: 04/28/23 1433 IMPRESSION: 1. Enlarged appendix associated with mild adjacent fat stranding which may represent early acute or chronic appendicitis. 2. Question of chronic ileocolitis. N.B. : The above Results were Read Back by Alejandro Ross MD to Bassem Richardson MD, and understanding confirmed on 04/28/2023 14:26:20 (ET). Electronically Signed: Alejandro Ross MD at 14:15 EDT , D/C Instructions Discharge Diet: Low fat / Low cholesterol Discharge Activity: Return to Normal Activity Weight Bearing Status: Weight bearing as tolerated Call your doctor if you observe: Fever of 101 or Higher, Shortness of breath, Dizziness, Swelling in the ankles, Chest pain and Uncontrolled pain (poorly controlled abdominal pain) Meaningful Use Info Meaningful Use Diagnoses (Choose all that apply): None applicable Discharge Plan Admission Admit Date/Time: 04/28/23 15:34 Primary Reason for Your Visit: abdominal pain Attending Provider: Adeline Arredondo Primary Care Provider: Karan Villarreal Consulting Providers: Nikos Prater; Andrey De La Cruz Discharge Orders/Prescriptions Prescriptions: No Action NK Referrals / Follow Up: Karan Villarreal MD [Primary Care Provider] - Disposition Disposition (needs filled in before D/C Order can be placed): Home, Self Care Charges/Coding Visit Charges Inpatient E&M: 67959 Disch Hosp >30min
[2023-04-29 22:41] LABS: Amphetamine Urine VISTA NEGATIVE (<1000 ng/mL); Barbiturate Urine VISTA NEGATIVE (< 200 ng/mL); Benzodiazepine Urine VISTA NEGATIVE (< 200 ng/mL); Cocaine Urine VISTA NEGATIVE (< 300 ng/mL); Ecstacy Urine VISTA NEGATIVE (< 500 ng/mL); Methadone Urine VISTA NEGATIVE (< 300 ng/mL); PCP Urine VISTA NEGATIVE (< 25 ng/mL); THC Urine VISTA POSITIVE (< 50 ng/mL); Vista UDS pH Range 6
[2023-05-03 21:06] LABS: Calprotectin, Stool 86 ug/g (0-120)
[2023-05-04 22:06] LABS: Pancreatic Elastase, Fecal 442 (>200)
== END 2023-04-29 14:15 | disposition left against medical advice (07) | DRG 392 ==
LOC: ED 15:27 → MS3 15:55
PROVIDERS: Internal Medicine Gastroenterology; Admitting Provider Internal Medicine; Emergency Provider Emergency Medicine; PCP Family Medicine; Visit Provider Student in an Organized Health Care Education/Training Program
DX: K52.9 Noninfective gastroenteritis and colitis, unspecified (principal); Z53.29 Procedure and treatment not carried out because of patient's decision for other reasons; Z87.891 Personal history of nicotine dependence
CPT/HCPCS: 36415; 74177; 80048; 80053; 80307; 81001; 82653; 82977; 83630; 83690; 83735; 83993; 84100; 85025; 87177; 87209; 87329; 87493; 87506; 99283; J7030; J7120; Q9967; A4216; J0744; J2405

== ENCOUNTER → 2023-04-30 | Outpatient (CLI) | payer OTHER, SELFPAY | END | disposition home or self-care (01) | PROVIDERS: PCP Family Medicine; Referring Provider Internal Medicine Gastroenterology; Visit Provider Internal Medicine Gastroenterology | DX: R69 Illness, unspecified (principal) ==

== ENCOUNTER → 2023-05-30 | Outpatient (CLI) | payer OTHER, SELFPAY | END | disposition home or self-care (01) | LOC: LABSPEC 10:50 | PROVIDERS: PCP Family Medicine; Referring Provider Internal Medicine Gastroenterology; Visit Provider Internal Medicine Gastroenterology | DX: K52.9 Noninfective gastroenteritis and colitis, unspecified (principal) | CPT/HCPCS: 87493 ==

== ENCOUNTER → 2023-06-01 | Outpatient (CLI) | payer OTHER, SELFPAY ==
[2023-06-04 19:07] LABS: Alternaria tenuis 0.42 kU/L (Class I); Ash, White 1.71 kU/L (Class III); Aspergillus fumigatus <0.10 kU/L (Class 0); Bermuda Grass 2.93 kU/L (Class III); Birch 0.21 kU/L (Class 0/I); Black Walnut 2.21 kU/L (Class III); Cat Hair / Dander,Stand 1.59 kU/L (Class III); Cedar, Mountain 0.38 kU/L (Class I); Cladosporium herbarum <0.10 kU/L (Class 0); Cockroach, American 1.23 kU/L (Class II); Cottonwood 0.61 kU/L (Class II); D farinae Mite 0.21 kU/L (Class 0/I); D pteronyssinus 0.16 kU/L (Class 0/I); Dog Epithelia 3.45 kU/L (Class III); Elm, American White 0.99 kU/L (Class II); Gluten <0.10 kU/L (Class 0); Immunoglobulin E 148 IU/mL (6-495); Maple/Box Elder 0.18 kU/L (Class 0/I); Mouse Urine <0.10 kU/L (Class 0); Mulberry, White <0.10 kU/L (Class 0); Oak, White 0.65 kU/L (Class II); Pecan 3.51 kU/L (Class III); Penicillium Notatum <0.10 kU/L (Class 0); Pigweed, Rough 0.86 kU/L (Class II); Russian Thistle 0.48 kU/L (Class I); Sheep Sorrel 0.34 kU/L (Class I); Sycamore, American 0.49 kU/L (Class I)
== END | disposition home or self-care (01) ==
PROVIDERS: PCP Family Medicine; Referring Provider Otolaryngology; Visit Provider Otolaryngology
DX: T78.40XA Allergy, unspecified, initial encounter (principal)
CPT/HCPCS: 36415; 82785; 86003

== ENCOUNTER → 2024-01-05 | Outpatient (CLI) | payer OTHER, SELFPAY ==
--- NOTE | 2024-01-05 11:04 | ECHOD_ITS ---
Reason For Study: Chest pain Procedure This was a 2D Doppler, Color Flow transthoracic echocardiogram. Exam performed in department. Left Ventricle Normal LV size. Left ventricular systolic function is normal. The estimated ejection fraction is 60 %. No regional wall motion abnormalities noted. Right Ventricle Normal RV size. Normal systolic function. Atria Normal left atrium. Normal right atrium. Mitral Valve Normal mitral valve. Tricuspid Valve Normal tricuspid valve. Aortic Valve Normal aortic valve. Trisinus/trileaflet aortic valve. Pulmonic Valve Normal pulmonic valve. Great Vessels Normal aortic root. The pulmonary is not well visualized. Inferior vena cava collapse with respiration. Pericardium/Pleural No pericardial effusion. MMode/2D Measurements & Calculations LVIDd: 4.5 cm IVSd: 1.2 cm Ao root diam: 2.9 cm LVIDs: 3.1 cm LVPWd: 1.0 cm RVDd: 3.4 cm FS: 30.3 % LAV(MOD-bp): 35.6 ml LVAd ap4: 34.5 cm2 LVAd ap2: 29.7 cm2 LAV(MOD-bp) Indexed: 16.1 ml/m2 LVLd ap4: 9.5 cm LVLd ap2: 9.5 cm LAV(MOD-sp2): 44.3 ml EDV(MOD-sp4): 103.1 ml EDV(MOD-sp2): 76.7 ml LAV(MOD-sp4): 28.5 ml EDV(sp4-el): 105.6 ml EDV(sp2-el): 78.9 ml LVAs ap4: 20.8 cm2 LVAs ap2: 19.1 cm2 LVLs ap4: 8.1 cm LVLs ap2: 8.8 cm ESV(MOD-sp4): 44.5 ml ESV(MOD-sp2): 34.8 ml ESV(sp4-el): 45.1 ml ESV(sp2-el): 35.1 ml EF(MOD-sp4): 56.9 % EF(MOD-sp2): 54.6 % EF(sp4-el): 57.3 % SV(MOD-sp4): 58.6 ml SV(MOD-sp2): 41.9 ml SV(sp4-el): 60.5 ml LA dimension(2D): 3.5 cm LA A4 area: 13.6 cm2 RA A4 area: 12.8 cm2 TAPSE: 1.6 cm Time Measurements MV dec time: 0.20 sec Doppler Measurements & Calculations MV E max elsa: 43.3 cm/sec Ao V2 max: 90.7 cm/sec LV V1 max: 78.6 cm/sec MV A max elsa: 45.2 cm/sec Ao max P.3 mmHg LV V1 max P.5 mmHg MV E/A: 0.96 Ao V2 mean: 69.2 cm/sec LV V1 mean P.4 mmHg Ao mean P.0 mmHg LV V1 mean: 55.4 cm/sec Ao V2 VTI: 19.7 cm LV V1 VTI: 17.1 cm AV (velocity ratio): 0.86 PA V2 max: 85.5 cm/sec ECHO/Echo Complete Interpretation Summary Normal LV size. Left ventricular systolic function is normal. The estimated ejection fraction is 60 %. Structurally normal valves. Ordering Physician: Aubrey Villarreal Referring Physician: Aubrey Villarreal Performed By: Jie Blunt RDCS and Student
--- NOTE | 2024-01-05 17:59 | STRESSREP ---
Stress Test Report Exercise stress test. 33-year-old man with a history of chest pain Stress protocol: Resting EKG demonstrates normal sinus rhythm with a rate of 70 bpm resting blood pressure is 110/64 mmHg. The patient exercised according to the regular Josue protocol for a total duration of 12 minutes attaining a maximum heart rate of 176 bpm which was 95% of maximum predicted heart rate; the maximum workload was 13.7 metabolic equivalents. At rest there were no ST or T wave changes noted to suggest ischemia and at peak exercise upsloping ST changes only were noted which did not meet the criteria for ischemia. No clinical angina was noted the test was terminated due to the target heart rate being achieved/fatigue. The peak blood pressure was 170/78 mmHg. Rate-pressure product was 29,900. Conclusion: Normal exercise stress test at a high workload
== END | disposition home or self-care (01) ==
LOC: CVS 11:01
PROVIDERS: PCP Family Medicine; Referring Provider Family Medicine; Visit Provider Family Medicine
DX: R07.9 Chest pain, unspecified (principal)
CPT/HCPCS: 93017; 93306

== ENCOUNTER → 2025-03-06 | Outpatient (CLI) | payer OTHER, SELFPAY ==
--- NOTE | 2025-03-06 14:53 | CT_ITS ---
PROCEDURE: CTA HEAD AND NECK W/ CONTRAST 03/06/2025 REASON FOR EXAM: NEW WORSENING HEADACHES. TECHNIQUE: CTA HEAD AND NECK W/ CONTRAST Multiplanar Sagittal and Coronal images were obtained. CONTRAST: Isovue 370 VOLUME: 100 mL One or more dose reduction techniques were used (e.g., Automated exposure control, adjustment of the mA and/or kV according to patient size, use of iterative reconstruction technique). RADIATION DOSE SUMMARY: CTDlvol: 44.99+ 45.67+ 18.87 mGy DLP: 1617.16 mGycm COMPARISON: None. FINDINGS: The common carotid, internal carotid, and cervical vertebral arteries are patent without evidence of stenosis or injury. The carotid siphons, anterior cerebral, anterior communicating, middle cerebral, and posterior cerebral arteries are patent. The [id number] is intact. The intracranial vertebrobasilar system is patent. The lung apices are clear. CT/CTA Head AND Neck W/ Contrast IMPRESSION: No acute arterial abnormality of the head or neck. Reading Location: [id number]
== END | disposition home or self-care (01) ==
LOC: CT 14:51
PROVIDERS: PCP Family Medicine; Referring Provider Family Medicine; Visit Provider Family Medicine
DX: R51.9 Headache, unspecified (principal)
CPT/HCPCS: 70496; 70498; Q9967